=== PATIENT | male | born 1940 | race Caucasian/White ===

== ENCOUNTER 2021-05-17 10:06 | Inpatient (IN) | payer MEDICARE, BC ==
[2021-05-17] VITALS (12 sets, daily range): BP systolic 150–202; BP diastolic 64–90
[~2021-05-17] VITALS: Ht 182.9 cm; Wt 99.0 kg
[2021-05-17] MEDS ORDERED: LIDOCAINE 2%/EPI 1:100,000 20 ML VIAL. ONE (10:54)
[2021-05-17] MEDS ORDERED: ASPIRIN RECTAL 300 MG SUPP. PR PRN (11:15)
--- NOTE | 2021-05-17 11:30 | NUR ---
Etelvina FARFAN notified Nursing Cement Mason Maintenance that Building Construction Foreman needs to be notified about this patient.
[2021-05-17] MEDS ORDERED: MIDAZOLAM HCL/PF 2 MG/2 ML VIAL. IV ONE (12:15)
[2021-05-17] MEDS ORDERED: fentaNYL PF VIAL 100 MCG/2 ML VIAL IV ONE (12:15)
[2021-05-17] MEDS ORDERED: ceFAZolin SODIUM 1 GM in IV NORMAL SALINE 100ML 100 ML IRR ONE (12:15)
[2021-05-17] MEDS ORDERED: LIDOCAINE 2%/EPI 1:100,000 20 ML VIAL. IJ ONE (12:15)
--- NOTE | 2021-05-17 12:29 | PDOC ---
MODERATE SEDATION ASSESSMENT RISKS/ALTERNATIVES Risks/Alternatives Risks and alternatives of this type of sedation and procedure discussed with: RISK/ALTERNATIVES: Patient H & P ON CHART H & P H & P on chart and reviewed for co-morbid conditions and appropriate labs. H&P ON CHART: Yes STATUS PREG STATUS ASSESSED: N/A MEDS/ALLERGIES REVIEWED Meds/Allergies Reviewed Medications and Allergies including time and route of recently administered narcotics and sedatives. MEDS/ALLERGIES REVIEWED: Yes ASA RATING ASA RATING: II AIRWAY ASSESSMENT Airway Assessment Airway patency, oral function limitations, presence of caps, crowns, dentures, partials, and ability to extend neck assessed. AIRWAY ASSESSMENT: Yes MALLAMPATI SCORE MALLAMPATI SCORE: II PRE-SEDATION ASSESSMENT PRE-SEDATION ASSESSMENT: Yes LOLA REYNOSO MD May 17, 2021 12:28
--- NOTE | 2021-05-17 12:50 | PDOC2 ---
NEUROLOGY CONSULT Date of Service DOS: DATE: 05/17/21 TIME: 12:50 Reason for Consult Reason for Consult: Stroke Referring Physician Referring Physician: Ms Leary Source Source: Chart review, Patient History of Present Illness History of Present Illness The patient is an 81-year-old right-handed male who presented to [facility] with onset at 430 yesterday morning of generalized weakness. In the emergency department he commented that he felt weak in the right leg and could not walk. He went back to bed and then woke up again at 530, was still too weak. He came to emergency department where he was found to have hypertension and was having episodes of bradycardia with possible second-degree and complete heart block. He was given atropine and heart rate improved, but then he went into complete heart block and was transferred to [place]. contacted me as the plan was to put in a pacemaker right away, but they wanted to get an MRI of the brain first, which has been done. I looked over the patient in the MRI scanner. Patient has had transient ischemic attacks in the past Past Medical History Cardiovascular: HTN, Hyperlipidemia GI: GERD, Other (Hiatal hernia) Past Surgical History Past Surgical History: Cholecystectomy, Hernia Repair (Umbilical), Total hip replacement (Left), Tonsillectomy Family History Family History: No pertinent hx Social History Social History No tobacco or alcohol, Current Medications Current Medications Current Medications Hydralazine HCl (Apresoline Inj) 10 mg PRN Q4HRS PRN IVP ELEVATED BP, SEE COMMENTS; Start 05/17/21 at 10:45 Lidocaine/ Epinephrine (LIDOCAINE 2%-EPI 1:100,000 multi-dose) 20 ml STK-MED ONCE .ROUTE ; Start 05/17/21 at 10:54; Stop 05/17/21 at 10:54; Status DC Atorvastatin Calcium (Lipitor) 80 mg QHS PO ; Start 05/17/21 at 21:00 Acetaminophen (Tylenol) 650 mg PRN Q6HRS PRN PO MILD PAIN / TEMP > 100.3'F; Start 05/17/21 at 11:15 Aspirin (Ecotrin) 325 mg DAILYWBKFT PO ; Start 05/18/21 at 08:00 Aspirin (Aspirin Rectal Supp) 300 mg PRN DAILY PRN MS IF UNABLE TO TAKE PO; Start 05/17/21 at 11:15 Cefazolin Sodium/ Dextrose 50 ml @ 100 mls/hr 1X ONCE IV Last administered on 05/17/21at 12:30; Start 05/17/21 at 13:00; Stop 05/17/21 at 13:29 Cefazolin Sodium 1 gm/Sodium Chloride 100 ml @ 600 mls/hr 1X ONCE IRR ; Start 05/17/21 at 12:15; Stop 05/17/21 at 12:24; Status DC Midazolam HCl (Versed) 2 mg 1X ONCE IV ; Start 05/17/21 at 12:15; Stop 05/17/21 at 12:29; Status DC Fentanyl Citrate (Fentanyl 2ml Vial) 100 mcg 1X ONCE IV ; Start 05/17/21 at 12:15; Stop 05/17/21 at 12:29; Status DC Lidocaine/ Epinephrine (LIDOCAINE 2%-EPI 1:100,000 multi-dose) 20 ml 1X ONCE IJ Last administered on 05/17/21at 12:44; Start 05/17/21 at 12:15; Stop 05/17/21 at 12:29; Status DC Allergies Allergies: Coded Allergies: No Known Allergies (Verified Allergy, Unknown, 05/17/21) ROS Review of System Negative for fever, chills, weight loss, shortness of breath, chest pain, indigestion, hematochezia, melena, and dysuria. Full 14-point review of systems is negative. Physical Exam Physical Examination General: Well-developed, well-nourished white male in no acute distress HEENT: Normocephalic andatraumatic.Temporal arteriespulsatile and nontender. Neck: Supple without bruit, no meningismus Musculoskeletal: Stability:see neurologic. Gait exam:see neurologic. Tone:see neurologic.Strength:see neurologic. Neurological: Mental Status:intact, orientation, memory, attention span/concentration, language, fund of knowledge normal. Cranial Nerves:Pupils equal and reactive to light, extraocular movements areintact, visual cardozo are full to confrontation. Facial sensation is normal. There is no facial asymmetry. Vestibulo-ocular reflex is intact. Palate elevates and tongue protrudes in midline. All other cranial related problems are negative except as mentioned before.Reflexes:2+ and symmetric with flexor plantar responses. Motor:5-/5 right hemiparesis, normal left strength with normal tone and bulk. Coordination:Finger-nose finger and rzzk-hd-wfkr testing are normal. Rapid alternating movements and fine finger movements are intact. Gait:not tested. Sensory:Normal pinprick, vibration, light touch, proprioception. Vitals VITALS Vital Signs Date Time Temp Pulse Resp B/P (MAP) Pulse Ox O2 Delivery O2 Flow Rate FiO2 05/17/21 10:42 98.7 40 16 184/90 (121) 92 Room Air 98.[address] HEAD INDICATION: Weakness COMPARISON: None Available. Exposure: One or more of the following individualized dose reduction techniques were utilized for this examination: 1. Automated exposure control 2. Adjustment of the mA and/or kV according to patient size 3. Use of iterative reconstruction technique TECHNIQUE: 5 mm contiguous axial images were obtained from the skull base to the vertex in both bone and soft tissue algorithm. FINDINGS: No abnormal attenuation within the brain parenchyma. No evidence of acute intracranial hemorrhage. No extra-axial fluid collections. No mass effect or midline shift. Ventricular size is appropriate. Basal cisterns are patent. No fractures identified.Jacobo-white differentiation is preserved.Globes and orbits are within normal limits. Mild opacification of the right mastoid air cells. IMPRESSION: 1. No acute intracranial findings. 2. Mild opacification of the right mastoid air cells could be secondary to fluid or mastoiditis. Correlate clinically. Assessment/Plan Assessment/Plan Impression: I reviewed the brain MRI and there is a left basal ganglia lacunar stroke also consistent with his examination Complete heart block Recommendations: Okay for pacemaker Await MR angiogram results Aspirin Statin Rehabilitation modalities Thank you for letting me help with the patient's care. JOANN JONES MD May 17, 2021 12:50
[2021-05-17] MEDS ORDERED: IODIXANOL 320 MG/ML 100 ML VIAL. ONE (12:51)
[2021-05-17] MEDS ORDERED: IODIXANOL 320 MG/ML 100 ML VIAL. IART ONE (13:45)
[2021-05-17] MEDS ORDERED: CONTRAST GIVEN. MC PRN (13:45)
[2021-05-17] MEDS ORDERED: hydrALAZINE 20 MG/ML VIAL. ONE (13:53)
[2021-05-17] MEDS: hydrALAZINE 20 MG/ML VIAL. IVP PRN ×2 (13:56→19:57)
--- NOTE | 2021-05-17 14:15 | NUR ---
Pt arrived from [employer] Operator to CV OBS post Pacemaker placement. Family at bedside. Speech notified. Pt to remain NPO until further evaluated. Radiologist called to confirm MRI positive for CVA. Dr Godfrey aware
--- NOTE | 2021-05-17 14:16 | RAD ---
EXAM: Brain MRI without contrast; neck MRA without contrast; head MRA without contrast. HISTORY: Cerebral infarction. Right-sided paresis. TECHNIQUE: Multiplanar, multisequence magnetic resonance imaging of the brain was performed without c ontrast. Magnetic resonance angiography of the head and neck was performed without contrast. Three-di mensional yhci-zn-aponci and maximum intensity projection images were obtained. COMPARISON: Head CT dated 05/16/2021. FINDINGS: Brain MRI: There is restricted diffusion within the posterior left putamen and posterior left externa l capsule and adjacent periventricular white matter due to acute infarction. There is no hemorrhage. There is no mass effect or midline shift. There is no hydrocephalus. There is age-appropriate cerebral volume loss. There are scattered areas of signal change throughout the cerebral white matter, most commonly due to chronic small vessel disease in patients of this age. The orbits are unremarkable. There is an incidental left sylvie bullosa. The paranasal sinuses are cl ear. There is a right greater than left mastoid fluid and fluid within the right middle ear. There ar e normal flow voids within the cerebral vessels. No calvarial lesion is seen. Head MRA: There is mild luminal narrowing involving the right greater than left supraclinoid internal carotid arteries likely due to flow artifact or atherosclerosis with approximately 50-69 percent jimmy nosis on the right and less than 50 being stenosis on the left. No additional stenosis is seen. No an eurysm is seen. Neck MRA: There is no evidence of hemodynamically significant stenosis. The vertebral arteries are co dominant. There are degenerative changes involving the spine, not formally assessed on this exam. IMPRESSION: 1. Acute infarct involving the posterior left putamen and adjacent external capsule and periventricul ar white matter. 2. Bilateral cerebral white matter changes, most commonly due to chronic small vessel disease in a pa tient of this age. 3. Cerebral volume loss. 4. Suspected atherosclerosis involving the supraclinoid internal carotid arteries, resulting in 50-69 percent stenosis on the right and less than 50 percent stenosis on the left. No additional stenosis or occlusion is seen. PQRS Compliance Statement - Stenosis calculations for CT, MR and conventional angiography are based u mariela measurement of the distal ICA diameter in accordance with the NASCET methodology. Stenosis calcu lations for carotid ultrasound studies are derived from validated velocity criteria which are known t o correlate with the NASCET methodology. Findings were discussed with Chelle, the nurse caring for the patient, at 1410 hours on 05/17/2021. FOR INTERNAL CODING PURPOSES RESULT CODE: (C) Electronically signed by: Sandy Gresham MD (05/17/2021 2:14 PM) [id number]
[2021-05-17] MEDS ORDERED: SIMV20TA18 PO (14:39)
[2021-05-17] MEDS ORDERED: ASPI-630 PO (14:39)
[2021-05-17] MEDS ORDERED: LISI20TA18 PO (14:39)
[2021-05-17] MEDS ORDERED: SAW450CA7 PO (14:39)
[2021-05-17] MEDS ORDERED: AMLO-187 PO (14:39)
[2021-05-17] MEDS ORDERED: OMEP40CA7 PO (14:39)
--- NOTE | 2021-05-17 14:40 | NUR ---
Spoke with Arlene at Dr. Godfrey's office regarding MRI results. She stated she will make sure he is aware.
--- NOTE | 2021-05-17 15:42 | NUR ---
Report called to April FARFAN
--- NOTE | 2021-05-17 16:14 | CARD ---
MR#: [id number] Date of Study: 05/17/2021 Ordering Physician: LOLA BELLAMY, Referring Physician: LOLA BELLAMY, Tech: APPROVED REPORT PROCEDURES Sedation Time: 50 minutes Dose: 17.40 Gycm2 Implantation of Medtronic dual-chamber permanent pacemaker Contrast: 15 mL [id number] Fluoro Time: 5.9 Minutes INDICATIONS Complete heart block with severe bradycardia PROCEDURE After explaining the risks, benefits, and alternative options, informed consent was obtained from the patient. The patient was brought to the cardiac catheterization lab and the left chest and shoulder were prepp ed and draped in a sterile manner. IV conscious sedation was used throughout procedure with appropriate monitoring and was performed in the presence of a registered nurse who was an independent trained observer other than the physician p erforming the procedure. During this case, Fluoroscopy and low osmolar contrast were used for imaging. Specimen(s) Removed: No Estimated Blood loss: 15 cc's. 30 cc of 2% lidocaine was infiltrated into the skin and subcutaneous tissues for local anesthesia. I nitial attempts to obtain venous access under fluoroscopic guidance were unsuccessful. A venogram wa s obtained to visualize the left subclavian vein and venous access was obtained successfully using a micropuncture kit. 9 and 7 Danish sheaths were inserted. A Medtronic bipolar active fixation right ventricular lead model 619528, serial number [id number] wa s advanced under fluoroscopy guidance and the tip was positioned in the right ventricular apex. Subs equently, a Medtronic bipolar active fixation right atrial lead model 714563, serial number [id number] was position in the right atrial appendage under fluoroscopy guidance. The leads were secured in place and were attached to a Medtronic dual-chamber permanent pacemaker generator model W3 DR 01, ser ial number [id number]. This was placed in the pocket that was subsequently closed in 3 layers. Hem ostasis was secured. The right ventricular lead showed a sensing amplitude of 8.7 mV, impedance of 901 ohms and a threshol d of 0.5 V. The right atrial lead showed a sensing amplitude of 2.3 mV, impedance of 777 ohms and a threshold of 0.8 V. Patient tolerated the procedure well. There were no immediate complications. CONCLUSION Successful implantation of Medtronic dual-chamber permanent pacemaker for complete heart block with s evere bradycardia. Signed by : Lola Bellamy, Electronically Approved : 05/17/2021 16:13:42
--- NOTE | 2021-05-17 16:29 | RAD ---
EXAM: Chest, single view. HISTORY: Pacemaker placement. COMPARISON: None. FINDINGS: A frontal view of the chest is obtained. There is no infiltrate, pleural effusion or pneumo thorax. There is mild biapical pleural parenchymal scarring. There is a cardiac pacemaker with leads overlying expected position. IMPRESSION: No acute pulmonary finding. Electronically signed by: Sandy Gresham MD (05/17/2021 4:26 PM) [id number]
--- NOTE | 2021-05-17 16:53 | NUR ---
Patient transported to room 671, no problems noted and food was waiting for patient. Son carried patient's pacemaker monitor kit up to his room.
--- NOTE | 2021-05-17 19:45 | NUR ---
Pt daughter at bedside, poc explained assessment completed vs obtained pt bp elevated hydralazine given pt denied pain at this time will resume care and continue to monitor pt.
[2021-05-17] MEDS: ACETAMINOPHEN 325 MG TABLET. PO PRN (21:58)
[2021-05-17] MEDS: ATORVASTATIN CALCIUM 40 MG TABLET. PO SCH (21:58)
[2021-05-17] MEDS ORDERED: LISINOPRIL 20 MG TABLET PO ONE (22:30)
[2021-05-18] VITALS (10 sets, daily range): BP systolic 150–199; BP diastolic 53–86
[2021-05-18] MEDS: hydrALAZINE 20 MG/ML VIAL. IVP PRN ×4 (01:45→21:13)
[2021-05-18] MEDS: ASPIRIN ENTERIC COATED 325 MG TABLET.DR. PO SCH (07:45)
[2021-05-18] MEDS ORDERED: LISINOPRIL 20 MG TABLET PO SCH (09:00)
--- NOTE | 2021-05-18 12:20 | PDOC ---
FANNIE SALAS LUMP ROOM SUPERVISOR 05/18/21 1220: CARDIO Progress Notes Date and Time Date of Service 05/18/2021 Time of Evaluation 1145 Subjective Subjective: No Chest Pain, No shortness of breath, No Palpitations, Other (just threw up her lunch) Vitals Vitals Vital Signs Date Time Temp Pulse Resp B/P (MAP) Pulse Ox O2 Delivery O2 Flow Rate FiO2 05/18/21 11:00 97.7 67 18 161/68 (99) 95 Room Air 97.7 05/17/21 19:45 2.0 Weight Weight [ ] Input and Output Intake and Output Intake and Output 05/18/21 07:00 Intake Total 880 ml Output Total 1025 ml Balance -145 ml Intake Oral 880 ml Output Urine Total 1025 ml # Bowel Movements 1 Laboratory Labs Laboratory Tests Test 05/17/21 20:57 05/18/21 08:01 05/18/21 11:37 Glucose (Fingerstick) 137 mg/dL (70-99) 117 mg/dL (70-99) 146 mg/dL (70-99) Physical Exam HEENT: Neck Supple W Full Motion Chest: Symmetric LUNGS: Other (diminished bases) Heart: RRR (AV pacing) Abdomen: Soft N/T Extremities: No Edema, No Calf Tenderness Neurology: alert, oriented, follow commands Other Exams left chest incision intact with steristrips, no redness, swelling, drain. Neurovascular status to LUE intact, sling in place Assessment Assessment 1. Acute stroke to posterior left putamen and adjacent external capsule and periventricular white matter with right sided weakness 2. Symptomatic bradycardia/SSS 3. Accelerated HTN: labile 4. HLP 5. Subclinical hypothyroidism 6. S/P PPM: medtronic, repeat interrogation revealed nml function. Tolerated procedure well 7. Hyperglycemia Recommendations 1. ASA, statin 2. suspected culprit is small vessel disease. Would interrogate device on next appt and will note if any contributing AFIB 3. TTE, CXR, A1C 4. SNU eval 5. Adjust BP meds per trend Continue lisinopril and norvasc. Justicifation of Admission Dx: Justifications for Admission: Justification of Admission Dx: Yes LOLA REYNOSO MD 05/18/21 9631: CARDIO Progress Notes Assessment Assessment Patient seen and examined. Agree with HUC OB's assessment and plan CHB s/p PPM implantation with device check showing normal function and CXR without any pneumothorax Neurology team following for acute CVA Increase lisinopril dose for better BP control FANNIE SALAS APRN May 18, 2021 12:20 LOLA REYNOSO MD May 18, 2021 21:51
--- NOTE | 2021-05-18 12:41 | PDOC ---
PROGRESS NOTES Date of Service DATE: 05/18/21 TIME: 12:38 Assessment Lacunar stroke, posterior left putamen and adjacent external capsule and periventricular white matter. Atherosclerosis involving the supraclinoid internal carotid arteries, resulting in 50-69 percent stenosis on the right and less than 50 percent stenosis on the left. No additional stenosis or occlusion Complete heart block, status-post pacemaker on 05/17 Plan Aspirin Statin Rehabilitation modalities, needs inpatient Discussed with son Subjective Feels better Objective Vital Signs Date Time Temp Pulse Resp B/P (MAP) Pulse Ox O2 Delivery O2 Flow Rate FiO2 05/18/21 11:00 97.7 67 18 161/68 (99) 95 Room Air 97.7 05/17/21 19:45 2.0 Intake and Output 05/18/21 07:00 Intake Total 880 ml Output Total 1025 ml Balance -145 ml Intake Oral 880 ml Output Urine Total 1025 ml # Bowel Movements 1 PHYSICAL EXAM Alert. Oriented to time, place and person. PERRL. EOMI. CN: no focal findings. Muscle tone: normal. Muscle strength: 5-/5 right arm, 3/5 right leg DTR: 2+ Plantar reflex: Flexor Gait: not examined in bed. Sensory exam: no abnormal findings. No cerebellar signs elicited. Review of Relevant I have reviewed the following items saúl (where applicable) has been applied. Labs Laboratory Tests Test 05/17/21 20:57 05/18/21 08:01 05/18/21 11:37 Glucose (Fingerstick) 137 mg/dL (70-99) 117 mg/dL (70-99) 146 mg/dL (70-99) Laboratory Tests Test 05/17/21 20:57 05/18/21 08:01 05/18/21 11:37 Glucose (Fingerstick) 137 mg/dL (70-99) 117 mg/dL (70-99) 146 mg/dL (70-99) Medications Current Medications Hydralazine HCl (Apresoline Inj) 10 mg PRN Q4HRS PRN IVP ELEVATED BP, SEE COMMENTS Last administered on 05/18/21at 07:47; Start 05/17/21 at 10:45 Lidocaine/ Epinephrine (LIDOCAINE 2%-EPI 1:100,000 multi-dose) 20 ml STK-MED ONCE .ROUTE ; Start 05/17/21 at 10:54; Stop 05/17/21 at 10:54; Status DC Atorvastatin Calcium (Lipitor) 80 mg QHS PO Last administered on 05/17/21at 21:58; Start 05/17/21 at 21:00 Acetaminophen (Tylenol) 650 mg PRN Q6HRS PRN PO MILD PAIN / TEMP > 100.3'F Last administered on 05/17/21at 21:58; Start 05/17/21 at 11:15 Aspirin (Ecotrin) 325 mg DAILYWBKFT PO Last administered on 05/18/21at 07:45; Start 05/18/21 at 08:00 Aspirin (Aspirin Rectal Supp) 300 mg PRN DAILY PRN HI IF UNABLE TO TAKE PO; Start 05/17/21 at 11:15 Cefazolin Sodium/ Dextrose 50 ml @ 100 mls/hr 1X ONCE IV Last administered on 05/17/21at 12:30; Start 05/17/21 at 13:00; Stop 05/17/21 at 13:29; Status DC Cefazolin Sodium 1 gm/Sodium Chloride 100 ml @ 600 mls/hr 1X ONCE IRR Last administered on 05/17/21at 13:15; Start 05/17/21 at 12:15; Stop 05/17/21 at 12:24; Status DC Midazolam HCl (Versed) 2 mg 1X ONCE IV Last administered on 05/17/21at 12:44; Start 05/17/21 at 12:15; Stop 05/17/21 at 12:29; Status DC Fentanyl Citrate (Fentanyl 2ml Vial) 100 mcg 1X ONCE IV Last administered on 05/17/21at 12:44; Start 05/17/21 at 12:15; Stop 05/17/21 at 12:29; Status DC Lidocaine/ Epinephrine (LIDOCAINE 2%-EPI 1:100,000 multi-dose) 20 ml 1X ONCE IJ Last administered on 05/17/21at 12:44; Start 05/17/21 at 12:15; Stop 05/17/21 at 12:29; Status DC Iodixanol (Visipaque 320) 100 ml STK-MED ONCE .ROUTE ; Start 05/17/21 at 12:51; Stop 05/17/21 at 12:52; Status DC Iodixanol (Visipaque 320) 100 ml 1X ONCE IART Last administered on 05/17/21at 13:39; Start 05/17/21 at 13:45; Stop 05/17/21 at 13:46; Status DC Info (CONTRAST GIVEN -- Rx MONITORING) 1 each PRN DAILY PRN MC SEE COMMENTS; Start 05/17/21 at 13:45; Stop 05/19/21 at 13:44 Hydralazine HCl (Apresoline Inj) 20 mg STK-MED ONCE .ROUTE ; Start 05/17/21 at 13:53; Stop 05/17/21 at 13:54; Status DC Cefazolin Sodium/ Dextrose 50 ml @ 100 mls/hr 1X ONCE IV Last administered on 05/17/21at 18:25; Start 05/17/21 at 18:30; Stop 05/17/21 at 18:59; Status DC Amlodipine Besylate (Norvasc) 10 mg DAILY PO Last administered on 05/18/21at 07:46; Start 05/18/21 at 09:00 Lisinopril (Prinivil) 20 mg DAILY PO Last administered on 05/18/21at 07:45; Start 05/18/21 at 09:00 Amlodipine Besylate (Norvasc) 10 mg 1X ONCE PO Last administered on 05/17/21at 22:39; Start 05/17/21 at 22:30; Stop 05/17/21 at 22:31; Status DC Lisinopril (Prinivil) 20 mg 1X ONCE PO Last administered on 05/17/21at 22:40; Start 05/17/21 at 22:30; Stop 05/17/21 at 22:31; Status DC Active Scripts Active Reported Aspirin 81 Mg Tab.chew 81 Mg PO DAILY Saw [place] (Saw [place] Fruit) 450 Mg Capsule 450 Mg PO DAILY Simvastatin 20 Mg Tablet 20 Mg PO HS Omeprazole 40 Mg Capsule.dr 40 Mg PO DAILY Lisinopril 20 Mg Tablet 20 Mg PO DAILY Amlodipine Besylate 10 Mg Tablet 10 Mg PO DAILY Vitals/I & O Vital Sign - Last 24 Hours 05/17/21 05/17/21 05/17/21 05/17/21 12:44 13:33 13:55 13:56 Pulse 75 67 72 Resp 17 16 17 B/P (MAP) 202/81 Pulse Ox 99 95 O2 Delivery Nasal Cannula Nasal Cannula Nasal Cannula O2 Flow Rate 2.0 2.0 9/105/17/21 05/17/21 05/17/21 14:10 14:25 14:40 15:10 Pulse 72 61 61 60 Resp 15 Pulse Ox 96 95 95 92 O2 Delivery Room Air Room Air Room Air Room Air 05/17/21 05/17/21 05/17/21 05/17/21 15:25 17:00 17:08 19:19 Temp 98.0 97.8 98.0 97.8 Pulse 60 66 69 Resp 13 18 16 B/P (MAP) 167/86 (113) 191/65 (107) Pulse Ox 96 96 95 O2 Delivery Room Air Room Air Room Air Room Air 05/17/21 05/17/21 05/17/21 05/17/21 19:45 19:57 22:39 22:40 Pulse 69 69 69 B/P (MAP) 191/96 191/96 191/96 O2 Delivery Room Air O2 Flow Rate 2.0 05/17/21 05/18/21 05/18/21 05/18/21 23:04 01:45 01:45 02:46 Temp 98.7 97.9 98.7 97.9 Pulse 65 67 68 72 Resp 18 16 B/P (MAP) 185/78 (113) 199/82 199/82 (121) 180/53 (95) Pulse Ox 94 95 O2 Delivery Room Air Room Air 05/18/21 05/18/21 05/18/21 05/18/21 03:52 07:00 07:45 07:46 Temp 98.0 98.0 Pulse 68 60 70 70 Resp 18 B/P (MAP) 181/62 (101) 198/86 (123) 198/86 198/86 Pulse Ox 93 O2 Delivery Room Air 05/18/21 05/18/21 05/18/21 05/18/21 07:47 08:00 09:18 11:00 Temp 97.7 97.7 Pulse 70 67 Resp 18 B/P (MAP) 198/86 159/73 (101) 161/68 (99) Pulse Ox 95 O2 Delivery Room Air Room Air Intake and Output 05/17/21 05/17/21 05/18/21 15:00 23:00 07:00 Intake Total 480 ml 400 ml Output Total 200 ml 825 ml Balance -200 ml 480 ml -425 ml Images Brain MRI without contrast; neck MRA without contrast; head MRA without contrast. HISTORY: Cerebral infarction. Right-sided paresis. TECHNIQUE: Multiplanar, multisequence magnetic resonance imaging of the brain was performed without contrast. Magnetic resonance angiography of the head and neck was performed without contrast. Three-dimensional [id number] and maximum intensity projection images were obtained. COMPARISON: Head CT dated 05/16/2021. FINDINGS: Brain MRI: There is restricted diffusion within the posterior left putamen and posterior left external capsule and adjacent periventricular white matter due to acute infarction. There is no hemorrhage. There is no mass effect or midline shift. There is no hydrocephalus. There is age-appropriate cerebral volume loss. There are scattered areas of signal change throughout the cerebral white matter, most commonly due to chronic small vessel disease in patients of this age. The orbits are unremarkable. There is an incidental left sylvie bullosa. The paranasal sinuses are clear. There is a right greater than left mastoid fluid and fluid within the right middle ear. There are normal flow voids within the cerebral vessels. No calvarial lesion is seen. Head MRA: There is mild luminal narrowing involving the right greater than left supraclinoid internal carotid arteries likely due to flow artifact or atherosclerosis with approximately 50-69 percent stenosis on the right and less than 50 being stenosis on the left. No additional stenosis is seen. No aneurysm is seen. Neck MRA: There is no evidence of hemodynamically significant stenosis. The vertebral arteries are codominant. There are degenerative changes involving the spine, not formally assessed on this exam. IMPRESSION: 1. Acute infarct involving the posterior left putamen and adjacent external capsule and periventricular white matter. 2. Bilateral cerebral white matter changes, most commonly due to chronic small vessel disease in a patient of this age. 3. Cerebral volume loss. 4. Suspected atherosclerosis involving the supraclinoid internal carotid arteries, resulting in 50-69 percent stenosis on the right and less than 50 percent stenosis on the left. No additional stenosis or occlusion is seen. Justicifation of Admission Dx: Justifications for Admission: Justification of Admission Dx: Yes JOANN JNOES MD May 18, 2021 12:41
--- NOTE | 2021-05-18 15:54 | RAD ---
Single view of the chest. 05/18/2021 12:59 PM Indication: Reason: 1 day post PM implantation - pt cannot stand, changed to 1 view x [place] Comparison: Chest radiograph, yesterday Findings: Dual-lead pacemaking device from a left subclavian approach noted. No pneumothorax. No foca l infiltrate. Heart is enlarged. No acute osseous changes are identified. IMPRESSION: Dual-lead pacemaking device from a left subclavian approach. No pneumothorax is identifie d. Electronically signed by: Adarsh Hannon MD (05/18/2021 3:52 PM) [id number]
--- NOTE | 2021-05-18 16:32 | NUR ---
SS following for discharge planning. SS reviewed pt chart and discussed with pt RN. Pt is from home and is currently on room air. Pt had pacemaker placement. PT/OT recommended acute rehabilitation. SS met with pt and pt's daughter in room to discuss discharge planning and acute rehabilitation. Pt and pt's family requesting to go to [facility], ; fax [phone]. SS phoned and faxed referral as requested. SS will continue to follow for discharge planning.
--- NOTE | 2021-05-18 19:40 | NUR ---
Pt in bed assessment completed vss poc explained pt denied pain pt concerned about his blood pressure being elevated. Will resume care and continue to monitor pt.Call light in reach bed alarm set.
[2021-05-18] MEDS: ATORVASTATIN CALCIUM 40 MG TABLET. PO SCH (21:13)
[2021-05-19] VITALS (8 sets, daily range): BP systolic 155–200; BP diastolic 61–75
[2021-05-19] MEDS: hydrALAZINE 20 MG/ML VIAL. IVP PRN ×2 (03:31→21:03)
[2021-05-19 06:58] LABS: CHOLESTEROL/HDL RATIO 3.5
--- NOTE | 2021-05-19 08:37 | PDOC ---
PROGRESS NOTES Date of Service DATE: 05/19/21 TIME: 08:36 Assessment Lacunar stroke, posterior left putamen and adjacent external capsule and periventricular white matter. Right leg weaker today Atherosclerosis involving the supraclinoid internal carotid arteries, resulting in 50-69 percent stenosis on the right and less than 50 percent stenosis on the left. No additional stenosis or occlusion Complete heart block, status-post pacemaker on 05/17 Plan Aspirin Statin Rehabilitation modalities, needs inpatient Tighten blood pressure control, reiterated that permissive hypertension is standard of care immediately after the stroke Discussed with son Subjective No pain, denies back pain Objective Vital Signs Date Time Temp Pulse Resp B/P (MAP) Pulse Ox O2 Delivery O2 Flow Rate FiO2 05/19/21 07:31 180/65 (103) 05/19/21 07:18 98.7 94 18 97 Room Air 98.7 Intake and Output 05/19/21 07:00 Intake Total 818 ml Output Total 1425 ml Balance -607 ml Intake Oral 818 ml Output Urine Total 1225 ml Emesis 200 ml PHYSICAL EXAM Alert. Oriented to time, place and person. PERRL. EOMI. CN: no focal findings. Muscle tone: normal. Muscle strength: 5-/5 right arm, 1/5 right leg DTR: 2+ Plantar reflex: Flexor Gait: not examined in bed. Sensory exam: no abnormal findings. No cerebellar signs elicited. Review of Relevant I have reviewed the following items saúl (where applicable) has been applied. Labs Laboratory Tests Test 05/17/21 20:57 05/18/21 08:01 05/18/21 11:37 05/18/21 16:59 Glucose (Fingerstick) 137 mg/dL (70-99) 117 mg/dL (70-99) 146 mg/dL (70-99) 117 mg/dL (70-99) Test 05/18/21 20:56 05/19/21 04:00 05/19/21 07:21 Glucose (Fingerstick) 118 mg/dL (70-99) 116 mg/dL (70-99) Triglycerides Level 74 mg/dL (0-150) Cholesterol Level 149 mg/dL (0-200) LDL Cholesterol, Calculated 92 mg/dL (0-100) VLDL Cholesterol, Calculated 15 mg/dL (0-40) Non-HDL Cholesterol Calculated 107 mg/dL (0-129) HDL Cholesterol 42 mg/dL (40-60) Cholesterol/HDL Ratio 3.5 Laboratory Tests Test 05/18/21 11:37 05/18/21 16:59 05/18/21 20:56 05/19/21 04:00 Glucose (Fingerstick) 146 mg/dL (70-99) 117 mg/dL (70-99) 118 mg/dL (70-99) Triglycerides Level 74 mg/dL (0-150) Cholesterol Level 149 mg/dL (0-200) LDL Cholesterol, Calculated 92 mg/dL (0-100) VLDL Cholesterol, Calculated 15 mg/dL (0-40) Non-HDL Cholesterol Calculated 107 mg/dL (0-129) HDL Cholesterol 42 mg/dL (40-60) Cholesterol/HDL Ratio 3.5 Test 05/19/21 07:21 Glucose (Fingerstick) 116 mg/dL (70-99) Medications Current Medications Hydralazine HCl (Apresoline Inj) 10 mg PRN Q4HRS PRN IVP ELEVATED BP, SEE COMMENTS Last administered on 05/19/21at 03:31; Start 05/17/21 at 10:45 Lidocaine/ Epinephrine (LIDOCAINE 2%-EPI 1:100,000 multi-dose) 20 ml STK-MED ONCE .ROUTE ; Start 05/17/21 at 10:54; Stop 05/17/21 at 10:54; Status DC Atorvastatin Calcium (Lipitor) 80 mg QHS PO Last administered on 05/18/21at 21:13; Start 05/17/21 at 21:00 Acetaminophen (Tylenol) 650 mg PRN Q6HRS PRN PO MILD PAIN / TEMP > 100.3'F Last administered on 05/17/21at 21:58; Start 05/17/21 at 11:15 Aspirin (Ecotrin) 325 mg DAILYWBKFT PO Last administered on 05/18/21at 07:45; Start 05/18/21 at 08:00 Aspirin (Aspirin Rectal Supp) 300 mg PRN DAILY PRN NC IF UNABLE TO TAKE PO; Start 05/17/21 at 11:15 Cefazolin Sodium/ Dextrose 50 ml @ 100 mls/hr 1X ONCE IV Last administered on 05/17/21at 12:30; Start 05/17/21 at 13:00; Stop 05/17/21 at 13:29; Status DC Cefazolin Sodium 1 gm/Sodium Chloride 100 ml @ 600 mls/hr 1X ONCE IRR Last administered on 05/17/21at 13:15; Start 05/17/21 at 12:15; Stop 05/17/21 at 12:24; Status DC Midazolam HCl (Versed) 2 mg 1X ONCE IV Last administered on 05/17/21at 12:44; Start 05/17/21 at 12:15; Stop 05/17/21 at 12:29; Status DC Fentanyl Citrate (Fentanyl 2ml Vial) 100 mcg 1X ONCE IV Last administered on 05/17/21at 12:44; Start 05/17/21 at 12:15; Stop 05/17/21 at 12:29; Status DC Lidocaine/ Epinephrine (LIDOCAINE 2%-EPI 1:100,000 multi-dose) 20 ml 1X ONCE IJ Last administered on 05/17/21at 12:44; Start 05/17/21 at 12:15; Stop 05/17/21 at 12:29; Status DC Iodixanol (Visipaque 320) 100 ml STK-MED ONCE .ROUTE ; Start 05/17/21 at 12:51; Stop 05/17/21 at 12:52; Status DC Iodixanol (Visipaque 320) 100 ml 1X ONCE IART Last administered on 05/17/21at 13:39; Start 05/17/21 at 13:45; Stop 05/17/21 at 13:46; Status DC Info (CONTRAST GIVEN -- Rx MONITORING) 1 each PRN DAILY PRN MC SEE COMMENTS; Start 05/17/21 at 13:45; Stop 05/19/21 at 13:44 Hydralazine HCl (Apresoline Inj) 20 mg STK-MED ONCE .ROUTE ; Start 05/17/21 at 13:53; Stop 05/17/21 at 13:54; Status DC Cefazolin Sodium/ Dextrose 50 ml @ 100 mls/hr 1X ONCE IV Last administered on 05/17/21at 18:25; Start 05/17/21 at 18:30; Stop 05/17/21 at 18:59; Status DC Amlodipine Besylate (Norvasc) 10 mg DAILY PO Last administered on 05/18/21at 07:46; Start 05/18/21 at 09:00 Lisinopril (Prinivil) 20 mg DAILY PO Last administered on 05/18/21at 07:45; Start 05/18/21 at 09:00; Stop 05/18/21 at 21:52; Status DC Amlodipine Besylate (Norvasc) 10 mg 1X ONCE PO Last administered on 05/17/21at 22:39; Start 05/17/21 at 22:30; Stop 05/17/21 at 22:31; Status DC Lisinopril (Prinivil) 20 mg 1X ONCE PO Last administered on 05/17/21at 22:40; Start 05/17/21 at 22:30; Stop 05/17/21 at 22:31; Status DC Lisinopril (Prinivil) 40 mg DAILY PO ; Start 05/19/21 at 09:00 Active Scripts Active Reported Aspirin 81 Mg Tab.chew 81 Mg PO DAILY Saw [place] (Saw [place] Fruit) 450 Mg Capsule 450 Mg PO DAILY Simvastatin 20 Mg Tablet 20 Mg PO HS Omeprazole 40 Mg Capsule.dr 40 Mg PO DAILY Lisinopril 20 Mg Tablet 20 Mg PO DAILY Amlodipine Besylate 10 Mg Tablet 10 Mg PO DAILY Vitals/I & O Vital Sign - Last 24 Hours 05/18/21 05/18/21 05/18/21 05/18/21 09:18 11:00 15:00 15:12 Temp 97.7 97.7 97.7 97.7 Pulse 67 69 68 Resp 18 16 B/P (MAP) 159/73 (101) 161/68 (99) 183/80 (114) 204/65 Pulse Ox 95 94 O2 Delivery Room Air Room Air 05/18/21 05/18/21 05/18/21 05/18/21 16:32 18:59 19:40 21:13 Temp 98.6 98.6 Pulse 73 72 Resp 18 B/P (MAP) 165/59 (94) 185/73 (110) 185/73 Pulse Ox 94 O2 Delivery Room Air Room Air 05/18/21 05/19/21 05/19/21 05/19/21 22:31 03:14 03:31 04:47 Temp 98.7 98.8 98.7 98.8 Pulse 96 101 94 78 Resp 18 18 B/P (MAP) 150/62 (91) 185/68 (107) 185/68 165/61 (95) Pulse Ox 93 96 O2 Delivery Room Air Room Air 05/19/21 05/19/21 07:18 07:31 Temp 98.7 98.7 Pulse 94 Resp 18 B/P (MAP) 200/72 (114) 180/65 (103) Pulse Ox 97 O2 Delivery Room Air Intake and Output 05/18/21 05/18/21 05/19/21 15:00 23:00 07:00 Intake Total 300 ml 318 ml 200 ml Output Total 550 ml 525 ml 350 ml Balance -250 ml -207 ml -150 ml Justicifation of Admission Dx: Justifications for Admission: Justification of Admission Dx: Yes JOANN JONES MD May 19, 2021 08:37
[2021-05-19] MEDS: LISINOPRIL 20 MG TABLET PO SCH (08:59)
[2021-05-19] MEDS: ASPIRIN ENTERIC COATED 325 MG TABLET.DR. PO SCH (08:59)
--- NOTE | 2021-05-19 09:50 | CARD ---
MR#: [id number] Date of Study: 05/18/2021 Ordering Physician: BRAYAN VELASCO, Referring Physician: BRAYAN VELASCO, Tech: Lizette Bhavanadylan, [facility] APPROVED REPORT EXAM: Two-dimensional and M-mode echocardiogram with Doppler and color Doppler. Other Information Quality : FairHR: 68bpm Technically limited study due to INDICATION CVA/TIA RISK FACTORS Hypertension Hyperlipidemia 2D DIMENSIONS RVDd2.9 (2.9-3.5cm)Left Atrium(2D)4.4 (1.6-4.0cm) IVSd1.0 (0.7-1.1cm)Aortic Root(2D)3.6 (2.0-3.7cm) LVDd5.5 (3.9-5.9cm)LVOT Diameter2.1 (1.8-2.4cm) PWd1.3 (0.7-1.1cm)LVDs3.3 (2.5-4.0cm) FS (%) 38.8 %SV99.4 ml LVEF(%)68.6 (>50%) Aortic Valve AoV Peak Fernando.152.0cm/sAoV VTI28.4cm AO Peak GR.9.2mmHgLVOT VTI 23.22cm AO Mean GR.5mmHg Mitral Valve MV E Wqrrpkxd82.0cm/sMV E Peak Gr.5mmHg MV DECEL [id number] A Sncnmpys958.5cm/s MV E Mean Gr.2mmHgE/A Ratio0.7 TDI Lateral E' P. V7.47cm/sMedial E' P. V5.47cm/s E/Lateral E'9.1E/Medial E'12.4 Tricuspid Valve TR P. [id number] [id number] TR Peak Gr.[id number] LEFT VENTRICLE The left ventricle is normal size. There is mild concentric left ventricular hypertrophy. The left ve ntricular systolic function is normal. The ejection fraction is 55%. There is normal LV segmental wal l motion. Transmitral Doppler flow pattern is Grade I-abnormal relaxation pattern. RIGHT VENTRICLE The right ventricle is mildly dilated. There is normal right ventricular wall thickness. The right ve ntricular systolic function is normal. There is a pacemaker lead in the right ventricle. ATRIA The left atrium is mildly dilated. The right atrium is not well visualized. There is a pacemaker lead seen in the right atrium. The interatrial septum is intact with no evidence for an atrial septal def ect or patent foramen ovale as noted on 2-D or Doppler imaging. AORTIC VALVE The aortic valve is normal in structure and function. Doppler and Color Flow revealed no significant aortic regurgitation. There is no significant aortic valvular stenosis. Calculated aortic valve area is 3.48 cm2 with maximum pressure gradient of 13 mmHg and mean pressure gradient of 7 mmHg. MITRAL VALVE The mitral valve is normal in structure and function. There is no evidence of mitral valve prolapse. There is no mitral valve stenosis. Doppler and Color-flow revealed trace mitral regurgitation. TRICUSPID VALVE The tricuspid valve is normal in structure and function. Doppler and Color Flow revealed trace tricus pid regurgitation with an estimated PAP of 32 mmHg. There is no tricuspid valve stenosis. PULMONIC VALVE The pulmonic valve is not well visualized. Doppler and Color Flow revealed trace pulmonic valvular re gurgitation. GREAT VESSELS The aortic root is normal in size. The IVC is dilated. PERICARDIAL EFFUSION There is no evidence of significant pericardial effusion. Critical Notification Critical Value: No <Conclusion> The left ventricular systolic function is normal. The ejection fraction is 55%. There is normal LV segmental wall motion. Transmitral Doppler flow pattern is Grade I-abnormal relaxation pattern. Pacer lead noted RA/RV. Trace mitral regurgitation. Trace tricuspid regurgitation with an estimated PAP of 32 mmHg. There is no evidence of significant pericardial effusion. Signed by : Huy Bellamy, Electronically Approved : 05/19/2021 09:50:25
--- NOTE | 2021-05-19 12:57 | NUR ---
SS following up with discharge planning. SS reviewed pt chart and discussed with pt RN. Pt is currently on room air. COVID19 negative. PT/OT recommended acute rehabilitation. Pt accepted at [facility], ; fax [phone]. SS will continue to follow for discharge planning.
--- NOTE | 2021-05-19 13:08 | PDOC ---
FANNIE SALAS CONVERSION DEVELOPER 05/19/21 1308: CARDIO Progress Notes Date and Time Date of Service 05/19/2021 Time of Evaluation 1245 Subjective Subjective: No Chest Pain, No shortness of breath, No Palpitations Vitals Vitals Vital Signs Date Time Temp Pulse Resp B/P (MAP) Pulse Ox O2 Delivery O2 Flow Rate FiO2 05/19/21 10:09 98.5 94 18 169/73 (105) 97 Room Air 98.5 Weight Weight [ ] Input and Output Intake and Output Intake and Output 05/19/21 07:00 Intake Total 818 ml Output Total 1425 ml Balance -607 ml Intake Oral 818 ml Output Urine Total 1225 ml Emesis 200 ml Laboratory Labs Laboratory Tests Test 05/18/21 16:59 05/18/21 20:56 05/19/21 04:00 05/19/21 07:21 Glucose (Fingerstick) 117 mg/dL (70-99) 118 mg/dL (70-99) 116 mg/dL (70-99) Triglycerides Level 74 mg/dL (0-150) Cholesterol Level 149 mg/dL (0-200) LDL Cholesterol, Calculated 92 mg/dL (0-100) VLDL Cholesterol, Calculated 15 mg/dL (0-40) Non-HDL Cholesterol Calculated 107 mg/dL (0-129) HDL Cholesterol 42 mg/dL (40-60) Cholesterol/HDL Ratio 3.5 Test 05/19/21 11:07 Glucose (Fingerstick) 132 mg/dL (70-99) Physical Exam HEENT: Neck Supple W Full Motion Chest: Symmetric LUNGS: Other (diminished bases) Heart: RRR (AV pacing) Abdomen: Soft N/T Extremities: No Edema, No Calf Tenderness Neurology: alert, oriented, follow commands Assessment Assessment 1. Acute stroke to posterior left putamen and adjacent external capsule and periventricular white matter with right sided weakness 2. Symptomatic bradycardia/SSS; EF and WM nml 3. Accelerated HTN: labile 4. HLP 5. Subclinical hypothyroidism 6. S/P PPM: medtronic, repeat interrogation revealed nml function. Tolerated procedure well. AV pacing 7. Hyperglycemia: A1C pending Recommendations 1. ASA, statin 2. suspected culprit is small vessel disease. Would interrogate device on next appt and will note if any contributing AFIB 3. SNU eval 4. Transfer primary care to hospitalist 5. Adjust BP meds per trend Continue lisinopril and norvasc. Add HCTZ, adjust per BP trend Justicifation of Admission Dx: Justifications for Admission: Justification of Admission Dx: Yes LOLA REYNOSO MD 05/19/212057: CARDIO Progress Notes Assessment Assessment Patient seen and examined. Agree with ROLLER OPERATOR's assessment and plan. s/p PPM implantation for CHB, doing well PPM interrogation normal and CXR without any pneumothorax Plan for rehab for CVA and f/u with our office as scheduled FANNIE SALAS APRN May 19, 2021 13:08 LOLA REYNOSO MD May 19, 2021 20:58
[2021-05-19] MEDS ORDERED: hydroCHLOROthiazide 12.5 MG CAPSULE PO ONE (13:15)
[2021-05-19 13:19] LABS: CALCIUM 8.9 mg/dL (8.5-10.1); CREATININE 1.5 mg/dL (0.7-1.3); POTASSIUM 3.8 mmol/L (3.5-5.1)
[2021-05-19] MEDS: ATORVASTATIN CALCIUM 40 MG TABLET. PO SCH (20:27)
[2021-05-20] VITALS (7 sets, daily range): BP systolic 141–208; BP diastolic 65–91
[2021-05-20] MEDS: hydrALAZINE 20 MG/ML VIAL. IVP PRN ×2 (01:39→22:34)
[2021-05-20 02:12] LABS: HEMOGLOBIN A1C 6.5 % (4.8-5.6)
[2021-05-20] MEDS: ACETAMINOPHEN 325 MG TABLET. PO PRN ×2 (03:14→22:33)
[2021-05-20] MEDS: ASPIRIN ENTERIC COATED 325 MG TABLET.DR. PO SCH (08:44)
[2021-05-20] MEDS: LISINOPRIL 20 MG TABLET PO SCH (08:44)
--- NOTE | 2021-05-20 12:20 | PDOC ---
PROGRESS NOTES Date of Service: DATE: 05/20/21 TIME: 12:17 Subjective Subjective Continues to complain of right sided weakness. Denied any chest pain or shortness of breath. Objective Objective Vital Signs Date Time Temp Pulse Resp B/P (MAP) Pulse Ox O2 Delivery O2 Flow Rate FiO2 05/20/21 11:22 98.0 65 18 141/91 (108) 96 Room Air 98.0 Intake and Output 05/20/21 07:00 Intake Total 300 ml Output Total 1325 ml Balance -1025 ml Intake Oral 300 ml Output Urine Total 1325 ml Physical Exam Abdomen: Normal bowel sounds, No tenderness Heart: Regular rate, No murmurs Extremities: No edema General: Alert, Oriented X3 HEENT: Atraumatic Lungs: Clear to auscultation Psych/Mental Status: Mood NL Assessment Assessment 1. 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 Neurology following. 2. Symptomatic bradycardia/SSS; EF and WM nml, s/p permanent pacemaker implantation. Telemetry showed paced rhythm. 3. Accelerated HTN: labile but better controlled 4. HLP: Continue statins 5. Subclinical hypothyroidism 6. S/P PPM: medtronic, repeat interrogation revealed nml function. Tolerated procedure well. AV pacing 7. Hyperglycemia: A1C pending Possible transfer to [facility] rehab today. Comment Review of Relevant I have reviewed the following items saúl (where applicable) has been applied. Labs Laboratory Tests Test 05/19/21 16:08 05/19/21 20:41 05/20/21 07:43 05/20/21 11:54 Glucose (Fingerstick) 117 mg/dL (70-99) 117 mg/dL (70-99) 106 mg/dL (70-99) 126 mg/dL (70-99) Medications Current Medications Hydrochlorothiazide (Microzide) 12.5 mg 1X ONCE PO Last administered on 05/19/21at 13:41; Start 05/19/21 at 13:15; Stop 05/19/21 at 13:16; Status DC Vitals/I & O Vital Sign - Last 24 Hours 05/19/21 05/19/21 05/19/21 05/19/21 14:17 19:00 19:45 21:03 Temp 98.2 97.8 98.2 97.8 Pulse 66 60 60 Resp 18 16 B/P (MAP) 155/61 (92) 193/75 (114) 193/75 Pulse Ox 97 96 O2 Delivery Room Air Room Air Room Air 05/19/21 05/20/21 05/20/21 05/20/21 23:00 00:00 01:39 03:00 Temp 98.1 97.7 98.1 97.7 Pulse 65 64 68 71 Resp 16 18 B/P (MAP) 197/74 (115) 185/72 (109) 217/73 143/74 (97) Pulse Ox 95 95 O2 Delivery Room Air Room Air 05/20/21 05/20/21 05/20/21 05/20/21 07:00 08:10 08:44 08:44 Temp 98.4 98.4 Pulse 67 65 65 Resp 18 B/P (MAP) 194/81 (118) Pulse Ox 96 O2 Delivery Room Air Room Air 05/20/21 11:22 Temp 98.0 98.0 Pulse 65 Resp 18 B/P (MAP) 141/91 (108) Pulse Ox 96 O2 Delivery Room Air Intake and Output 05/19/21 05/19/21 05/20/21 15:00 23:00 07:00 Intake Total 200 ml 100 ml Output Total 200 ml 300 ml 825 ml Balance 0 ml -200 ml -825 ml LOLA REYNOSO MD May 20, 2021 12:20
--- NOTE | 2021-05-20 12:35 | PDOC ---
PROGRESS NOTES Date of Service DATE: 05/20/21 TIME: 12:30 Assessment 1. Acute stroke left putamen with extension into external capsule leading to right hemiparesis affecting leg more than arm. He feels he is improving on a daily basis. He has better movement of the arm but still difficulty with much movement of his leg. 2. Heart block requiring a permanent pacemaker. Arm is currently in a brace to prevent pacemaker leads from dislodging. 3. Hypertension 4. Hyperlipidemia with LDL cholesterol at 92 5. Diabetes with a hemoglobin A1c of 6.5 6. Vascular disease with MRA of the neck revealing 50-69% stenosis of the supraclinoid right internal carotid artery and less than 50% stenosis on the left. Plan 1. He may transfer to rehabilitation from a neurologic perspective when medically stable. 2. He will he is a statin for hyperlipidemia 3. He will need to modify his diet to try to control the blood sugars 4. Blood pressure will need to be monitored and medication gradually adjusted to gain better control. Subjective I feel good. I am not in any pain from the pacemaker insertion. It does not feel like there is anything there. I am moving my right side a little bit better each day. I still have a lot of trouble with my right leg. Objective Vital Signs Date Time Temp Pulse Resp B/P (MAP) Pulse Ox O2 Delivery O2 Flow Rate FiO2 05/20/21 11:22 98.0 65 18 141/91 (108) 96 Room Air 98.0 Intake and Output 05/20/21 07:00 Intake Total 300 ml Output Total 1325 ml Balance -1025 ml Intake Oral 300 ml Output Urine Total 1325 ml PHYSICAL EXAM He was alert, awake and cooperative. Speech was fluent and clear. He had a good fund of recent and remote knowledge. Attention and concentration was intact. He appeared well groomed and well nourished. He was fully oriented. Examination of the cranial nerves revealed visual cardozo were full to confrontation. Extraocular movements were intact. The eyes were conjugate. Pu pils were 3 mm. Facial sensation was intact. The muscles of mastication and facial expression were powerful symmetrically. There was no delay of initiation of smile. Hearing was intact to finger rub. The palate arched symmetrically and the tongue was midline. Muscle bulk was symmetric. He was not spastic or rigid. Power appeared full on the left. In the right arm power was 4/5. Power in the right leg 1/5. Sensation was intact to light touch and sharp bilaterally. Gait was not testable. Review of Relevant I have reviewed the following items saúl (where applicable) has been applied. Labs Laboratory Tests Test 05/18/21 16:59 05/18/21 20:56 05/19/21 04:00 05/19/21 07:21 Glucose (Fingerstick) 117 mg/dL (70-99) 118 mg/dL (70-99) 116 mg/dL (70-99) Sodium Level 137 mmol/L (136-145) Potassium Level 3.8 mmol/L (3.5-5.1) Chloride Level 100 mmol/L (98-107) Carbon Dioxide Level 24 mmol/L (21-32) Anion Gap 13 (6-14) Blood Urea Nitrogen 21 mg/dL (8-26) Creatinine 1.5 mg/dL (0.7-1.3) Estimated GFR (Cockcroft-Gault) 45.0 Glucose Level 103 mg/dL (70-99) Hemoglobin A1c 6.5 % (4.8-5.6) Calcium Level 8.9 mg/dL (8.5-10.1) Triglycerides Level 74 mg/dL (0-150) Cholesterol Level 149 mg/dL (0-200) LDL Cholesterol, Calculated 92 mg/dL (0-100) VLDL Cholesterol, Calculated 15 mg/dL (0-40) Non-HDL Cholesterol Calculated 107 mg/dL (0-129) HDL Cholesterol 42 mg/dL (40-60) Cholesterol/HDL Ratio 3.5 Test 05/19/21 11:07 05/19/21 16:08 05/19/21 20:41 05/20/21 07:43 Glucose (Fingerstick) 132 mg/dL (70-99) 117 mg/dL (70-99) 117 mg/dL (70-99) 106 mg/dL (70-99) Test 05/20/21 11:54 Glucose (Fingerstick) 126 mg/dL (70-99) Laboratory Tests Test 05/19/21 16:08 05/19/21 20:41 05/20/21 07:43 05/20/21 11:54 Glucose (Fingerstick) 117 mg/dL (70-99) 117 mg/dL (70-99) 106 mg/dL (70-99) 126 mg/dL (70-99) Medications Current Medications Hydralazine HCl (Apresoline Inj) 10 mg PRN Q4HRS PRN IVP ELEVATED BP, SEE COMMENTS Last administered on 05/20/21at 01:39; Start 05/17/21 at 10:45 Lidocaine/ Epinephrine (LIDOCAINE 2%-EPI 1:100,000 multi-dose) 20 ml STK-MED ONCE .ROUTE ; Start 05/17/21 at 10:54; Stop 05/17/21 at 10:54; Status DC Atorvastatin Calcium (Lipitor) 80 mg QHS PO Last administered on 05/19/21at 20:27; Start 05/17/21 at 21:00 Acetaminophen (Tylenol) 650 mg PRN Q6HRS PRN PO MILD PAIN / TEMP > 100.3'F Last administered on 05/20/21at 03:14; Start 05/17/21 at 11:15 Aspirin (Ecotrin) 325 mg DAILYWBKFT PO Last administered on 05/20/21at 08:44; Start 05/18/21 at 08:00 Aspirin (Aspirin Rectal Supp) 300 mg PRN DAILY PRN OK IF UNABLE TO TAKE PO; Start 05/17/21 at 11:15 Cefazolin Sodium/ Dextrose 50 ml @ 100 mls/hr 1X ONCE IV Last administered on 05/17/21at 12:30; Start 05/17/21 at 13:00; Stop 05/17/21 at 13:29; Status DC Cefazolin Sodium 1 gm/Sodium Chloride 100 ml @ 600 mls/hr 1X ONCE IRR Last administered on 05/17/21at 13:15; Start 05/17/21 at 12:15; Stop 05/17/21 at 12:24; Status DC Midazolam HCl (Versed) 2 mg 1X ONCE IV Last administered on 05/17/21at 12:44; Start 05/17/21 at 12:15; Stop 05/17/21 at 12:29; Status DC Fentanyl Citrate (Fentanyl 2ml Vial) 100 mcg 1X ONCE IV Last administered on 05/17/21at 12:44; Start 05/17/21 at 12:15; Stop 05/17/21 at 12:29; Status DC Lidocaine/ Epinephrine (LIDOCAINE 2%-EPI 1:100,000 multi-dose) 20 ml 1X ONCE IJ Last administered on 05/17/21at 12:44; Start 05/17/21 at 12:15; Stop 05/17/21 at 12:29; Status DC Iodixanol (Visipaque 320) 100 ml STK-MED ONCE .ROUTE ; Start 05/17/21 at 12:51; Stop 05/17/21 at 12:52; Status DC Iodixanol (Visipaque 320) 100 ml 1X ONCE IART Last administered on 05/17/21at 13:39; Start 05/17/21 at 13:45; Stop 05/17/21 at 13:46; Status DC Info (CONTRAST GIVEN -- Rx MONITORING) 1 each PRN DAILY PRN MC SEE COMMENTS; Start 05/17/21 at 13:45; Stop 05/19/21 at 13:44; Status DC Hydralazine HCl (Apresoline Inj) 20 mg STK-MED ONCE .ROUTE ; Start 05/17/21 at 13:53; Stop 05/17/21 at 13:54; Status DC Cefazolin Sodium/ Dextrose 50 ml @ 100 mls/hr 1X ONCE IV Last administered on 05/17/21at 18:25; Start 05/17/21 at 18:30; Stop 05/17/21 at 18:59; Status DC Amlodipine Besylate (Norvasc) 10 mg DAILY PO Last administered on 05/20/21at 08:44; Start 05/18/21 at 09:00 Lisinopril (Prinivil) 20 mg DAILY PO Last administered on 05/18/21at 07:45; Start 05/18/21 at 09:00; Stop 05/18/21 at 21:52; Status DC Amlodipine Besylate (Norvasc) 10 mg 1X ONCE PO Last administered on 05/17/21at 22:39; Start 05/17/21 at 22:30; Stop 05/17/21 at 22:31; Status DC Lisinopril (Prinivil) 20 mg 1X ONCE PO Last administered on 05/17/21at 22:40; Start 05/17/21 at 22:30; Stop 05/17/21 at 22:31; Status DC Lisinopril (Prinivil) 40 mg DAILY PO Last administered on 05/20/21at 08:44; Start 05/19/21 at 09:00 Hydrochlorothiazide (Microzide) 12.5 mg 1X ONCE PO Last administered on 05/19/21at 13:41; Start 05/19/21 at 13:15; Stop 05/19/21 at 13:16; Status DC Active Scripts Active Reported Aspirin 81 Mg Tab.chew 81 Mg PO DAILY Saw [place] (Saw [place] Fruit) 450 Mg Capsule 450 Mg PO DAILY Simvastatin 20 Mg Tablet 20 Mg PO HS Omeprazole 40 Mg Capsule.dr 40 Mg PO DAILY Lisinopril 20 Mg Tablet 20 Mg PO DAILY Amlodipine Besylate 10 Mg Tablet 10 Mg PO DAILY Vitals/I & O Vital Sign - Last 24 Hours 05/19/21 05/19/21 05/19/21 05/19/21 14:17 19:00 19:45 21:03 Temp 98.2 97.8 98.2 97.8 Pulse 66 60 60 Resp 18 16 B/P (MAP) 155/61 (92) 193/75 (114) 193/75 Pulse Ox 97 96 O2 Delivery Room Air Room Air Room Air 05/19/21 05/20/21 05/20/21 05/20/21 23:00 00:00 01:39 03:00 Temp 98.1 97.7 98.1 97.7 Pulse 65 64 68 71 Resp 16 18 B/P (MAP) 197/74 (115) 185/72 (109) 217/73 143/74 (97) Pulse Ox 95 95 O2 Delivery Room Air Room Air 05/20/21 05/20/21 05/20/21 05/20/21 07:00 08:10 08:44 08:44 Temp 98.4 98.4 Pulse 67 65 65 Resp 18 B/P (MAP) 194/81 (118) Pulse Ox 96 O2 Delivery Room Air Room Air 05/20/21 11:22 Temp 98.0 98.0 Pulse 65 Resp 18 B/P (MAP) 141/91 (108) Pulse Ox 96 O2 Delivery Room Air Intake and Output 05/19/21 05/19/21 05/20/21 15:00 23:00 07:00 Intake Total 200 ml 100 ml Output Total 200 ml 300 ml 825 ml Balance 0 ml -200 ml -825 ml Justicifation of Admission Dx: Justifications for Admission: Justification of Admission Dx: Yes JAROD SHERIDAN MD May 20, 2021 12:35
--- NOTE | 2021-05-20 12:45 | PDOC1 ---
History and Physical Date of Admission Date of Admission DATE: 05/20/21 TIME: 12:34 Identification/Chief Complaint Chief Complaint right weakness Source Source: Chart review, Patient History of Present Illness History of Present Illness Mr. Santana is an 81-year-old right-handed male transferred her [facility] on 05.17 for generalized weakness. New problem with right leg and could not walk. Taken here for heart blockj pacer placed, MRI done, treated for acute stroke, modalities done pacer placed for heart block Past Medical History Cardiovascular: HTN, Hyperlipidemia GI: GERD, Other (Hiatal hernia) Past Surgical History Past Surgical History: Cholecystectomy, Hernia Repair (Umbilical), Total hip replacement (Left), Tonsillectomy Family History Family History: No Significant Social History Smoke: No ALCOHOL: none Current Medications Current Medications Current Medications Hydralazine HCl (Apresoline Inj) 10 mg PRN Q4HRS PRN IVP ELEVATED BP, SEE COMMENTS Last administered on 05/20/21at 01:39; Start 05/17/21 at 10:45 Lidocaine/ Epinephrine (LIDOCAINE 2%-EPI 1:100,000 multi-dose) 20 ml STK-MED ONCE .ROUTE ; Start 05/17/21 at 10:54; Stop 05/17/21 at 10:54; Status DC Atorvastatin Calcium (Lipitor) 80 mg QHS PO Last administered on 05/19/21at 20:27; Start 05/17/21 at 21:00 Acetaminophen (Tylenol) 650 mg PRN Q6HRS PRN PO MILD PAIN / TEMP > 100.3'F Last administered on 05/20/21at 03:14; Start 05/17/21 at 11:15 Aspirin (Ecotrin) 325 mg DAILYWBKFT PO Last administered on 05/20/21at 08:44; Start 05/18/21 at 08:00 Aspirin (Aspirin Rectal Supp) 300 mg PRN DAILY PRN ME IF UNABLE TO TAKE PO; Start 05/17/21 at 11:15 Cefazolin Sodium/ Dextrose 50 ml @ 100 mls/hr 1X ONCE IV Last administered on 05/17/21at 12:30; Start 05/17/21 at 13:00; Stop 05/17/21 at 13:29; Status DC Cefazolin Sodium 1 gm/Sodium Chloride 100 ml @ 600 mls/hr 1X ONCE IRR Last administered on 05/17/21at 13:15; Start 05/17/21 at 12:15; Stop 05/17/21 at 12:24; Status DC Midazolam HCl (Versed) 2 mg 1X ONCE IV Last administered on 05/17/21at 12:44; Start 05/17/21 at 12:15; Stop 05/17/21 at 12:29; Status DC Fentanyl Citrate (Fentanyl 2ml Vial) 100 mcg 1X ONCE IV Last administered on 05/17/21at 12:44; Start 05/17/21 at 12:15; Stop 05/17/21 at 12:29; Status DC Lidocaine/ Epinephrine (LIDOCAINE 2%-EPI 1:100,000 multi-dose) 20 ml 1X ONCE IJ Last administered on 05/17/21at 12:44; Start 05/17/21 at 12:15; Stop 05/17/21 at 12:29; Status DC Iodixanol (Visipaque 320) 100 ml STK-MED ONCE .ROUTE ; Start 05/17/21 at 12:51; Stop 05/17/21 at 12:52; Status DC Iodixanol (Visipaque 320) 100 ml 1X ONCE IART Last administered on 05/17/21at 13:39; Start 05/17/21 at 13:45; Stop 05/17/21 at 13:46; Status DC Info (CONTRAST GIVEN -- Rx MONITORING) 1 each PRN DAILY PRN MC SEE COMMENTS; Start 05/17/21 at 13:45; Stop 05/19/21 at 13:44; Status DC Hydralazine HCl (Apresoline Inj) 20 mg STK-MED ONCE .ROUTE ; Start 05/17/21 at 13:53; Stop 05/17/21 at 13:54; Status DC Cefazolin Sodium/ Dextrose 50 ml @ 100 mls/hr 1X ONCE IV Last administered on 05/17/21at 18:25; Start 05/17/21 at 18:30; Stop 05/17/21 at 18:59; Status DC Amlodipine Besylate (Norvasc) 10 mg DAILY PO Last administered on 05/20/21at 08:44; Start 05/18/21 at 09:00 Lisinopril (Prinivil) 20 mg DAILY PO Last administered on 05/18/21at 07:45; Start 05/18/21 at 09:00; Stop 05/18/21 at 21:52; Status DC Amlodipine Besylate (Norvasc) 10 mg 1X ONCE PO Last administered on 05/17/21at 22:39; Start 05/17/21 at 22:30; Stop 05/17/21 at 22:31; Status DC Lisinopril (Prinivil) 20 mg 1X ONCE PO Last administered on 05/17/21at 22:40; Start 05/17/21 at 22:30; Stop 05/17/21 at 22:31; Status DC Lisinopril (Prinivil) 40 mg DAILY PO Last administered on 05/20/21at 08:44; Start 05/19/21 at 09:00 Hydrochlorothiazide (Microzide) 12.5 mg 1X ONCE PO Last administered on 05/19/21at 13:41; Start 05/19/21 at 13:15; Stop 05/19/21 at 13:16; Status DC Active Scripts Active Reported Aspirin 81 Mg Tab.chew 81 Mg PO DAILY Saw [place] (Saw [place] Fruit) 450 Mg Capsule 450 Mg PO DAILY Simvastatin 20 Mg Tablet 20 Mg PO HS Omeprazole 40 Mg Capsule.dr 40 Mg PO DAILY Lisinopril 20 Mg Tablet 20 Mg PO DAILY Amlodipine Besylate 10 Mg Tablet 10 Mg PO DAILY Allergies Allergies: Coded Allergies: No Known Allergies (Verified Allergy, Unknown, 05/17/21) ROS General: No: Chills, Night Sweats, Fatigue, Malaise, Appetite, Other PSYCHOLOGICAL ROS: No: Anxiety, Behavioral Disorder, Concentration difficultie, Decreased libido, Depression, Disorientation, Hallucinations, Hostility, Irritablity, Memory difficulties, Mood Swings, Obsessive thoughts, Physical abuse, Sexual abuse, Sleep disturbances, Suicidal ideation, Other Eyes: No Blurry vision, No Decreased vision, No Double vision, No Dry eyes, No Excessive tearing, No Eye Pain, No Itchy Eyes, No Loss of vision, No Photophobia, No Scotomata, No Uses contacts, No Uses glasses, No Other HEENT: YES: Heacaches; No: Visual Changes, Hearing change, Nasal congestion, Nasal discharge, Oral lesions, Sinus pain, Sore Throat, Epistaxis, Sneezing, Snoring, Tinnitus, Vertigo, Vocal changes, Other Respiratory: No: Cough, Hemoptysis, Orthopnea, Pleuritic Pain, Shortness of breath, SOB with excertion, Sputum Changes, Stridor, Tachypnea, Wheezing, Other Cardiovascular: No Chest Pain, No Palpitations, No Orthopnea, No Paroxysmal Noc. Dyspnea, No Edema, No Lt Headedness, No Other Gastrointestinal: No Nausea, No Vomiting, No Abdominal Pain, No Diarrhea, No Constipation, No Melena, No Hematochezia, No Other Genitourinary: YES Discharge Musculoskeletal: Yes Gait Disturbance, Yes Muscular Weakness Neurological: Yes Gait Disturbance; No Behavorial Changes, No Bowel/Bladder ControlChng, No Confusion, No Dizz iness, No Headaches, No Impaired Coord/balance, No Memory Loss, No Numbness/Tingling, No Seizures, No Speech Problems, No Tremors, No Visual Changes, No Weakness, No Other Skin: No Dry Skin, No Eczema, No Hair Changes, No Lumps, No Mole Changes, No Mottling, No Nail Changes, No Pruritus, No Rash, No Skin Lesion Changes, No Other, No Acne Physical Exam General: Alert, Oriented X3, Cooperative HEENT: Atraumatic Lungs: Clear to auscultation Heart: S1S2, RRR Rectal Exam: not examined Extremities: No cyanosis, Normal pulses Skin: No breakdown Neuro: Normal speech, Sensation intact Psych/Mental Status: Mental status NL, Mood NL Vitals Vitals Vital Signs Date Time Temp Pulse Resp B/P (MAP) Pulse Ox O2 Delivery O2 Flow Rate FiO2 05/20/21 11:22 98.0 65 18 141/91 (108) 96 Room Air 98.0 05/17/21 19:45 2.0 Labs Labs Laboratory Tests Test 05/18/21 16:59 05/18/21 20:56 05/19/21 04:00 05/19/21 07:21 Glucose (Fingerstick) 117 mg/dL (70-99) 118 mg/dL (70-99) 116 mg/dL (70-99) Sodium Level 137 mmol/L (136-145) Potassium Level 3.8 mmol/L (3.5-5.1) Chloride Level 100 mmol/L (98-107) Carbon Dioxide Level 24 mmol/L (21-32) Anion Gap 13 (6-14) Blood Urea Nitrogen 21 mg/dL (8-26) Creatinine 1.5 mg/dL (0.7-1.3) Estimated GFR (Cockcroft-Gault) 45.0 Glucose Level 103 mg/dL (70-99) Hemoglobin A1c 6.5 % (4.8-5.6) Calcium Level 8.9 mg/dL (8.5-10.1) Triglycerides Level 74 mg/dL (0-150) Cholesterol Level 149 mg/dL (0-200) LDL Cholesterol, Calculated 92 mg/dL (0-100) VLDL Cholesterol, Calculated 15 mg/dL (0-40) Non-HDL Cholesterol Calculated 107 mg/dL (0-129) HDL Cholesterol 42 mg/dL (40-60) Cholesterol/HDL Ratio 3.5 Test 05/19/21 11:07 05/19/21 16:08 05/19/21 20:41 05/20/21 07:43 Glucose (Fingerstick) 132 mg/dL (70-99) 117 mg/dL (70-99) 117 mg/dL (70-99) 106 mg/dL (70-99) Test 05/20/21 11:54 Glucose (Fingerstick) 126 mg/dL (70-99) Laboratory Tests Test 05/19/21 16:08 05/19/21 20:41 05/20/21 07:43 05/20/21 11:54 Glucose (Fingerstick) 117 mg/dL (70-99) 117 mg/dL (70-99) 106 mg/dL (70-99) 126 mg/dL (70-99) Images Images IMPRESSION: MRI 1. Acute infarct involving the posterior left putamen and adjacent external capsule and periventricular white matter. 2. Bilateral cerebral white matter changes, most commonly due to chronic small vessel disease in a patient of this age. 3. Cerebral volume loss. 4. Suspected atherosclerosis involving the supraclinoid internal carotid arteries, resulting in 50-69 percent stenosis on the right and less than 50 percent stenosis on the left. No additional stenosis or occlusion is seen. VTE Prophylaxis Ordered VTE Prophylaxis Devices: Yes VTE Pharmacological Prophylaxi: No Assessment/Plan Assessment/Plan weakneass, post CVA, with hemiparesis, needs rehab, acute rehab planned acute complete heart block, now s/p dual chamber pacer \CKD 3 htn Justifications for Admission Other Justification AYANNA JEAN-BAPTISTE MD May 20, 2021 12:45
[2021-05-20] MEDS: ATORVASTATIN CALCIUM 40 MG TABLET. PO SCH (22:30)
[2021-05-21 02:35] VITALS: BP 143/60
[2021-05-21 05:03] LABS: BASO % 1 % (0-3); EOS # 0.1 x10^3/uL (0.0-0.7); EOS % 1 % (0-3); HEMATOCRIT 42.9 % (39.0-53.0); HEMOGLOBIN 14.5 g/dL (13.0-17.5); LYMPH % 13 % (24-48); MEAN CORPUSCULAR HEMOGLOBIN 31 pg (25-35); MEAN CORPUSCULAR HGB CONC 34 g/dL (31-37); MEAN CORPUSCULAR VOLUME 92 fL (79-100); MONO # 0.7 x10^3/uL (0.0-1.1); MONO % 9 % (0-9); NEUT # 5.9 x10^3/uL (1.8-7.7); NEUT % 76 % (31-73); PLATELET COUNT 155 x10^3/uL (140-400); RED BLOOD COUNT 4.65 x10^6/uL (4.30-5.70); RED CELL DISTRIBUTION WIDTH 14.5 % (11.5-14.5); WHITE BLOOD COUNT 7.7 x10^3/uL (4.0-11.0)
[2021-05-21 05:24] LABS: ALBUMIN 3.1 g/dL (3.4-5.0); ALBUMIN/GLOBULIN RATIO 0.8 (1.0-1.7); CREATININE 1.5 mg/dL (0.7-1.3); POTASSIUM 3.7 mmol/L (3.5-5.1); TOTAL BILIRUBIN 0.7 mg/dL (0.2-1.0); TOTAL PROTEIN 6.9 g/dL (6.4-8.2)
[2021-05-21 07:00] VITALS: BP 156/84
[2021-05-21] MEDS: LISINOPRIL 20 MG TABLET PO SCH (09:19)
[2021-05-21] MEDS: ASPIRIN ENTERIC COATED 325 MG TABLET.DR. PO SCH (09:20)
[2021-05-21] MEDS: ACETAMINOPHEN 325 MG TABLET. PO PRN (09:20)
[2021-05-21 11:38] VITALS: BP 166/67
--- NOTE | 2021-05-21 12:13 | PDOC ---
PROGRESS NOTES Date of Service: DATE: 05/21/21 TIME: 12:12 Subjective Subjective Denied any chest pain or shortness of breath Objective Objective Vital Signs Date Time Temp Pulse Resp B/P (MAP) Pulse Ox O2 Delivery O2 Flow Rate FiO2 05/21/21 11:38 97.4 63 20 166/67 (100) 97 Room Air 97.4 Intake and Output 05/21/21 07:00 Intake Total 250 ml Output Total 400 ml Balance -150 ml Intake Oral 250 ml Output Urine Total 400 ml Physical Exam Abdomen: Normal bowel sounds, No tenderness Heart: Regular rate, No murmurs Extremities: No cyanosis, Normal pulses General: Alert, Oriented X3, Cooperative HEENT: Atraumatic Lungs: Clear to auscultation Neuro: Normal speech, Sensation intact Psych/Mental Status: Mental status NL, Mood NL Skin: No breakdown Assessment Assessment 1. 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 Neurology following. 2. Symptomatic bradycardia/SSS; EF and WM nml, s/p permanent pacemaker implantation. Telemetry showed paced rhythm. 3. Accelerated HTN: labile but better controlled 4. HLP: Continue statins 5. Subclinical hypothyroidism 6. S/P PPM: medtronic, repeat interrogation revealed nml function. Tolerated procedure well. AV pacing 7. Hyperglycemia: A1C pending Waiting for availability of bed at [facility] rehab. Comment Review of Relevant I have reviewed the following items saúl (where applicable) has been applied. Labs Laboratory Tests Test 05/20/21 17:19 05/20/21 20:48 05/21/21 04:30 05/21/21 08:00 Glucose (Fingerstick) 129 mg/dL (70-99) 117 mg/dL (70-99) 112 mg/dL (70-99) White Blood Count 7.7 x10^3/uL (4.0-11.0) Red Blood Count 4.65 x10^6/uL (4.30-5.70) Hemoglobin 14.5 g/dL (13.0-17.5) Hematocrit 42.9 % (39.0-53.0) Mean Corpuscular Volume 92 fL (79-100) Mean Corpuscular Hemoglobin 31 pg (25-35) Mean Corpuscular Hemoglobin Concent 34 g/dL (31-37) Red Cell Distribution Width 14.5 % (11.5-14.5) Platelet Count 155 x10^3/uL (140-400) Neutrophils (%) (Auto) 76 % (31-73) Lymphocytes (%) (Auto) 13 % (24-48) Monocytes (%) (Auto) 9 % (0-9) Eosinophils (%) (Auto) 1 % (0-3) Basophils (%) (Auto) 1 % (0-3) Neutrophils # (Auto) 5.9 x10^3/uL (1.8-7.7) Lymphocytes # (Auto) 1.0 x10^3/uL (1.0-4.8) Monocytes # (Auto) 0.7 x10^3/uL (0.0-1.1) Eosinophils # (Auto) 0.1 x10^3/uL (0.0-0.7) Basophils # (Auto) 0.0 x10^3/uL (0.0-0.2) Sodium Level 139 mmol/L (136-145) Potassium Level 3.7 mmol/L (3.5-5.1) Chloride Level 104 mmol/L (98-107) Carbon Dioxide Level 26 mmol/L (21-32) Anion Gap 9 (6-14) Blood Urea Nitrogen 33 mg/dL (8-26) Creatinine 1.5 mg/dL (0.7-1.3) Estimated GFR (Cockcroft-Gault) 45.0 BUN/Creatinine Ratio 22 (6-20) Glucose Level 110 mg/dL (70-99) Calcium Level 9.0 mg/dL (8.5-10.1) Total Bilirubin 0.7 mg/dL (0.2-1.0) Aspartate Amino Transf (AST/SGOT) 28 U/L (15-37) Alanine Aminotransferase (ALT/SGPT) 26 U/L (16-63) Alkaline Phosphatase 94 U/L (46-116) Total Protein 6.9 g/dL (6.4-8.2) Albumin 3.1 g/dL (3.4-5.0) Albumin/Globulin Ratio 0.8 (1.0-1.7) Test 05/21/21 11:23 Glucose (Fingerstick) 106 mg/dL (70-99) Vitals/I & O Vital Sign - Last 24 Hours 05/20/21 05/20/21 05/20/21 05/20/21 15:52 19:00 20:00 22:34 Temp 97.6 97.9 97.6 97.9 Pulse 63 63 63 Resp 16 20 B/P (MAP) 188/65 (106) 208/72 (117) 208/72 Pulse Ox 97 95 O2 Delivery Room Air Room Air Room Air 05/20/21 05/21/21 05/21/21 05/21/21 22:35 02:35 07:00 08:00 Temp 97.7 97.3 97.4 97.7 97.3 97.4 Pulse 65 68 69 Resp 18 19 20 B/P (MAP) 191/83 (119) 143/60 (87) 156/84 (108) Pulse Ox 97 96 91 O2 Delivery Room Air Room Air Room Air Room Air 05/21/21 05/21/21 05/21/21 09:19 09:20 11:38 Temp 97.4 97.4 Pulse 69 69 63 Resp 20 B/P (MAP) 156/84 156/84 166/67 (100) Pulse Ox 97 O2 Delivery Room Air Intake and Output 05/20/21 05/20/21 05/21/21 15:00 23:00 07:00 Intake Total 100 ml 0 ml 150 ml Output Total 200 ml 200 ml Balance -100 ml -200 ml 150 ml LOLA REYNOSO MD May 21, 2021 12:13
--- NOTE | 2021-05-21 14:49 | PDOC ---
[facility] PROGRESS NOTE Date of Service DOS: DATE: 05/21/21 TIME: 14:47 Chief Complaint Chief Complaint 1. 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 3. complete Heart block requiring a permanent pacemaker. 4. Hyperlipidemia and htn 5. Diabetes 2 - good contorl 6. carotid artery stenosis, mild History of Present Illness History of Present Illness planning transfer to rehabilitation, [facility], cont meds, PT andOT Vitals/I&O Vitals/I&O: Vital Signs Date Time Temp Pulse Resp B/P (MAP) Pulse Ox O2 Delivery O2 Flow Rate FiO2 05/21/21 11:38 97.4 63 20 166/67 (100) 97 Room Air 97.4 I & O 05/20/21 05/20/21 05/21/21 15:00 23:00 07:00 Intake Total 100 ml 0 ml 150 ml Output Total 200 ml 200 ml Balance -100 ml -200 ml 150 ml Physical Exam General: Alert, Oriented X3, Cooperative Heart: Regular rate, No murmurs Lungs: Clear Abdomen: Normal bowel sounds, No tenderness Extremities: No cyanosis, Normal pulses Skin: No breakdown Labs Labs: Laboratory Tests Test 05/20/21 17:19 05/20/21 20:48 05/21/21 04:30 05/21/21 08:00 Glucose (Fingerstick) 129 mg/dL (70-99) 117 mg/dL (70-99) 112 mg/dL (70-99) White Blood Count 7.7 x10^3/uL (4.0-11.0) Red Blood Count 4.65 x10^6/uL (4.30-5.70) Hemoglobin 14.5 g/dL (13.0-17.5) Hematocrit 42.9 % (39.0-53.0) Mean Corpuscular Volume 92 fL (79-100) Mean Corpuscular Hemoglobin 31 pg (25-35) Mean Corpuscular Hemoglobin Concent 34 g/dL (31-37) Red Cell Distribution Width 14.5 % (11.5-14.5) Platelet Count 155 x10^3/uL (140-400) Neutrophils (%) (Auto) 76 % (31-73) Lymphocytes (%) (Auto) 13 % (24-48) Monocytes (%) (Auto) 9 % (0-9) Eosinophils (%) (Auto) 1 % (0-3) Basophils (%) (Auto) 1 % (0-3) Neutrophils # (Auto) 5.9 x10^3/uL (1.8-7.7) Lymphocytes # (Auto) 1.0 x10^3/uL (1.0-4.8) Monocytes # (Auto) 0.7 x10^3/uL (0.0-1.1) Eosinophils # (Auto) 0.1 x10^3/uL (0.0-0.7) Basophils # (Auto) 0.0 x10^3/uL (0.0-0.2) Sodium Level 139 mmol/L (136-145) Potassium Level 3.7 mmol/L (3.5-5.1) Chloride Level 104 mmol/L (98-107) Carbon Dioxide Level 26 mmol/L (21-32) Anion Gap 9 (6-14) Blood Urea Nitrogen 33 mg/dL (8-26) Creatinine 1.5 mg/dL (0.7-1.3) Estimated GFR (Cockcroft-Gault) 45.0 BUN/Creatinine Ratio 22 (6-20) Glucose Level 110 mg/dL (70-99) Calcium Level 9.0 mg/dL (8.5-10.1) Total Bilirubin 0.7 mg/dL (0.2-1.0) Aspartate Amino Transf (AST/SGOT) 28 U/L (15-37) Alanine Aminotransferase (ALT/SGPT) 26 U/L (16-63) Alkaline Phosphatase 94 U/L (46-116) Total Protein 6.9 g/dL (6.4-8.2) Albumin 3.1 g/dL (3.4-5.0) Albumin/Globulin Ratio 0.8 (1.0-1.7) Test 05/21/21 11:23 Glucose (Fingerstick) 106 mg/dL (70-99) Review of Systems Review of Systems: no nv.d no pain cannot transfer without assit, right leg cannot bear weight Comment Review of Relevant I have reviewed the following items saúl (where applicable) has been applied. Justifications for Admission Other Justification AYANNA JEAN-BAPTISTE MD May 21, 2021 14:49
[2021-05-21 14:56] VITALS: BP 186/75
[2021-05-21 19:01] VITALS: BP 173/63
[2021-05-21] MEDS: hydrALAZINE 20 MG/ML VIAL. IVP PRN (19:34)
[2021-05-21] MEDS: ATORVASTATIN CALCIUM 40 MG TABLET. PO SCH (19:34)
[2021-05-21 22:32] VITALS: BP 182/63
[2021-05-22 02:47] VITALS: BP 177/68
[2021-05-22 07:00] VITALS: BP 188/92
[2021-05-22] MEDS: ASPIRIN ENTERIC COATED 325 MG TABLET.DR. PO SCH (08:20)
[2021-05-22] MEDS: LISINOPRIL 20 MG TABLET PO SCH (08:21)
[2021-05-22 11:00] VITALS: BP 159/72
--- NOTE | 2021-05-22 12:46 | PDOC ---
PROGRESS NOTES Date of Service: DATE: 05/22/21 TIME: 12:45 Subjective Subjective No new complaints Objective Objective Vital Signs Date Time Temp Pulse Resp B/P (MAP) Pulse Ox O2 Delivery O2 Flow Rate FiO2 05/22/21 08:21 68 188/92 05/22/21 08:00 Room Air 05/22/21 07:00 97.8 16 90 97.8 Intake and Output 05/22/21 07:00 Intake Total 120 ml Output Total 800 ml Balance -680 ml Intake Oral 120 ml Output Urine Total 800 ml # Voids 1 Physical Exam Abdomen: Normal bowel sounds, No tenderness Heart: Regular rate, No murmurs Extremities: No cyanosis, Normal pulses General: Alert, Oriented X3, Cooperative HEENT: Atraumatic Lungs: Clear to auscultation Neuro: Normal speech, Sensation intact Psych/Mental Status: Mental status NL, Mood NL Skin: No breakdown Assessment Assessment 1. 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 Neurology following. 2. Symptomatic bradycardia/SSS; EF and WM nml, s/p permanent pacemaker implantation. Telemetry showed paced rhythm. 3. Accelerated HTN: Blood pressure elevated. Start metoprolol. Continue other medications. 4. HLP: Continue statins 5. Subclinical hypothyroidism 6. S/P PPM: medtronic, repeat interrogation revealed nml function. Tolerated procedure well. AV pacing 7. Hyperglycemia: A1C pending Waiting for availability of bed at [facility] rehab. Comment Review of Relevant I have reviewed the following items saúl (where applicable) has been applied. Labs Laboratory Tests Test 05/21/21 16:26 05/21/21 21:17 05/22/21 07:39 05/22/21 12:05 Glucose (Fingerstick) 124 mg/dL (70-99) 111 mg/dL (70-99) 121 mg/dL (70-99) 113 mg/dL (70-99) Vitals/I & O Vital Sign - Last 24 Hours 05/21/21 05/21/21 05/21/21 05/21/21 14:56 19:01 19:14 19:34 Temp 98.0 97.7 98.0 97.7 Pulse 66 67 67 Resp 18 16 B/P (MAP) 186/75 (112) 173/63 (99) 173/63 Pulse Ox 97 96 O2 Delivery Room Air Room Air Room Air 05/21/21 05/22/21 05/22/21 05/22/21 22:32 02:47 07:00 08:00 Temp 97.9 97.8 97.8 97.9 97.8 97.8 Pulse 70 62 68 Resp 16 16 16 B/P (MAP) 182/63 (102) 177/68 (104) 188/92 (124) Pulse Ox 95 95 90 O2 Delivery Room Air Room Air Room Air Room Air 05/22/21 05/22/21 08:20 08:21 Pulse 68 68 B/P (MAP) 188/92 188/92 Intake and Output 05/21/21 05/21/21 05/22/21 15:00 23:00 07:00 Intake Total 0 ml 120 ml Output Total 200 ml 600 ml Balance -200 ml 0 ml -480 ml LOLA REYNOSO MD May 22, 2021 12:46
[2021-05-22 15:00] VITALS: BP 156/64
--- NOTE | 2021-05-22 15:07 | PDOC ---
[facility] PROGRESS NOTE Date of Service DOS: DATE: 05/22/21 TIME: 15:03 Chief Complaint Chief Complaint 1. 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 3. complete Heart block requiring a permanent pacemaker. 4. Hyperlipidemia and htn 5. Diabetes 2 - good contorl 6. carotid artery stenosis, mild History of Present Illness History of Present Illness 05/22/21 No acute events overnight. Patient seen and examined bedside. No concerns with nursing. Pending bed availability at [facility] reh. Patient's chart, labs, images were reviewed and discussed with RN Vitals/I&O Vitals/I&O: Vital Signs Date Time Temp Pulse Resp B/P (MAP) Pulse Ox O2 Delivery O2 Flow Rate FiO2 05/22/21 11:00 97.8 68 16 159/72 (101) 96 Room Air 97.8 I & O 05/21/21 05/21/21 05/22/21 15:00 23:00 07:00 Intake Total 0 ml 120 ml Output Total 200 ml 600 ml Balance -200 ml 0 ml -480 ml Physical Exam General: Alert, Oriented X3, Cooperative Heart: Regular rate, No murmurs Lungs: Clear Abdomen: Normal bowel sounds, No tenderness Extremities: No cyanosis, Normal pulses Skin: No breakdown Labs Labs: Laboratory Tests Test 05/21/21 16:26 05/21/21 21:17 05/22/21 07:39 05/22/21 12:05 Glucose (Fingerstick) 124 mg/dL (70-99) 111 mg/dL (70-99) 121 mg/dL (70-99) 113 mg/dL (70-99) Comment Review of Relevant I have reviewed the following items saúl (where applicable) has been applied. Justifications for Admission Other Justification JOHN WALSH MD May 22, 2021 15:07
[2021-05-22] MEDS: METOPROLOL TART IMMED RELEASE 25 MG TABLET. PO SCH ×2 (15:52→20:23)
[2021-05-22 19:06] VITALS: BP 151/75
[2021-05-22] MEDS: ATORVASTATIN CALCIUM 40 MG TABLET. PO SCH (20:23)
[2021-05-22 23:17] VITALS: BP 166/73
[2021-05-23 03:00] VITALS: BP 193/83
[2021-05-23] MEDS: hydrALAZINE 20 MG/ML VIAL. IVP PRN (03:29)
[2021-05-23 07:00] VITALS: BP 191/72
[2021-05-23] MEDS ORDERED: METO25TA4 PO (08:26)
[2021-05-23] MEDS ORDERED: ATOR40TA59 PO (08:26)
--- NOTE | 2021-05-23 08:28 | DISCH ---
DISCHARGE INSTRUCTIONS Condition on Discharge Condition on Discharge: Stable Activity After Discharge Activity Instructions for Disc: Activity as tolerated Lifting Instructions after Dis: Do not lift >10 pounds Exercise Instruction after Dis: Walk 15 min, 3 x per day Driving Instructions after Dis: Do not drive today Contacting the DR. after DC Call your doctor for: If your condition worsens (Please see your PCP JACKY) Follow-Up Follow up with: PCP within 2 weeks of discharge Follow Up With: Cardiology as needed or as scheduled Treatment/Equipment after DC Comment: pacemaker JOHN WALSH MD May 23, 2021 08:28
--- NOTE | 2021-05-23 08:43 | SNU/HH DC ---
DISCHARGE ORDERS DISCHARGE INFORMATION: DISCHARGE DATE: May 23, 2021 CONDITION ON DISCHARGE: Stable CODE STATUS: Code Status: Full LONGTERM: SNF STAY <30 DAYS: Yes POST DISCHARGE ORDERS: ACTIVITY ORDERS: Activity as tolerated CHECKS AFTER DISCHARGE: COMMENTS: pacemaker FOLLOW-UP: PHYSICIAN FOLLOW-UP: PCP within 2 weeks of discharge ADDITIONAL FOLLOW-UP: Cardiology as needed or as scheduled TREATMENT/EQUIPMENT ORDERS: Physical Therapy For: Evalulation/Treatment Occupational Therapy For: Evaluation/Treatment DISCHARGE MEDICATIONS: Home Meds Active Scripts Metoprolol Tartrate (METOPROLOL TARTRATE) 25 Mg Tablet, 25 MG PO BID for heart rate for 30 Days, #60 TAB Prov:JOHN WALSH MD 05/23/21 Atorvastatin Calcium (ATORVASTATIN CALCIUM) 40 Mg Tablet, 80 MG PO QHS for cholesterol for 30 Days, #60 TAB Prov:JOHN WALSH MD 05/23/21 Reported Medications Aspirin (ASPIRIN) 81 Mg Tab.chew, 81 MG PO DAILY for , TAB.CHEW 05/17/21 Saw [place] Fruit (SAW [place]METTO) 450 Mg Capsule, 450 MG PO DAILY for , CAP 05/17/21 Omeprazole (OMEPRAZOLE) 40 Mg Capsule.dr, 40 MG PO DAILY for , CAP 05/17/21 Lisinopril (LISINOPRIL) 20 Mg Tablet, 20 MG PO DAILY for FOR HYPERTENSION, #30 TAB 0 Refills 05/17/21 Amlodipine Besylate (AMLODIPINE BESYLATE) 10 Mg Tablet, 10 MG PO DAILY for , TAB 05/17/21 Discontinued Reported Medications Simvastatin (SIMVASTATIN) 20 Mg Tablet, 20 MG PO HS for FOR CHOLESTEROL, #30 TAB 0 Refills 05/17/21 JOHN WALSH MD May 23, 2021 08:43
[2021-05-23] MEDS: ASPIRIN ENTERIC COATED 325 MG TABLET.DR. PO SCH (10:20)
[2021-05-23] MEDS: LISINOPRIL 20 MG TABLET PO SCH (10:21)
[2021-05-23] MEDS: METOPROLOL TART IMMED RELEASE 25 MG TABLET. PO SCH (10:21)
[2021-05-23 11:00] VITALS: BP 143/63
--- NOTE | 2021-05-23 11:56 | NUR ---
SS following up with discharge planning. SS reviewed pt chart and discussed with pt RN. Pt is currently on room air. COVID19 negative. PT/OT recommended acute rehabilitation. Pt accepted at [facility], ; fax [phone]. Bed available. Discharge orders received and phoned and faxed to [facility]. Pt will discharge today and go to [facility] at 1300. [facility] to provide transportation. Pt, pt's RN, and pt's family notified.
--- NOTE | 2021-05-23 13:18 | PDOC ---
PROGRESS NOTES Date of Service: DATE: 05/23/21 TIME: 13:16 Subjective Subjective No new complaints. Objective Objective Vital Signs Date Time Temp Pulse Resp B/P (MAP) Pulse Ox O2 Delivery O2 Flow Rate FiO2 05/23/21 11:00 97.5 77 16 143/63 (89) 95 Room Air 97.5 Intake and Output 05/23/21 07:00 Intake Total 680 ml Output Total 525 ml Balance 155 ml Intake Oral 680 ml Output Urine Total 525 ml Physical Exam Abdomen: Normal bowel sounds, No tenderness Heart: Regular rate, No murmurs Extremities: No cyanosis, Normal pulses General: Alert, Oriented X3, Cooperative HEENT: Atraumatic Lungs: Clear to auscultation Neuro: Normal speech, Sensation intact Psych/Mental Status: Mental status NL, Mood NL Skin: No breakdown Assessment Assessment 1. 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 Neurology following. 2. Symptomatic bradycardia/SSS; EF and WM nml, s/p permanent pacemaker implantation. Telemetry showed paced rhythm. 3. Accelerated HTN: Blood pressure better controlled. Continue current medical regimen. 4. HLP: Continue statins 5. Subclinical hypothyroidism 6. S/P PPM: medtronic, repeat interrogation revealed nml function. AV pacing DC later today to [facility] rehab. Follow-up with our office as scheduled. Comment Review of Relevant I have reviewed the following items saúl (where applicable) has been applied. Labs Laboratory Tests Test 05/22/21 21:13 Glucose (Fingerstick) 110 mg/dL (70-99) Vitals/I & O Vital Sign - Last 24 Hours 05/22/21 05/22/21 05/22/21 05/22/21 15:00 15:52 19:06 19:40 Temp 98.1 97.5 98.1 97.5 Pulse 60 68 73 Resp 18 18 B/P (MAP) 156/64 (94) 159/72 151/75 (100) Pulse Ox 95 96 O2 Delivery Room Air Room Air Room Air 05/22/21 05/22/21 05/23/21 05/23/21 20:23 23:17 03:00 03:29 Temp 98.0 98.1 98.0 98.1 Pulse 73 63 67 67 Resp 18 16 B/P (MAP) 151/75 166/73 (104) 193/83 (119) 198/83 Pulse Ox 95 98 O2 Delivery Room Air Room Air 05/23/21 05/23/21 05/23/21 05/23/21 07:00 08:00 10:21 10:21 Temp 97.8 97.8 Pulse 66 66 66 Resp 16 B/P (MAP) 191/72 (111) 191/ 191/72 Pulse Ox 95 O2 Delivery Room Air Room Air 05/23/21 05/23/21 10:21 11:00 Temp 97.5 97.5 Pulse 66 77 Resp 16 B/P (MAP) 191 143/63 (89) Pulse Ox 95 O2 Delivery Room Air Intake and Output 05/22/21 05/22/21 05/23/21 15:00 23:00 07:00 Intake Total 380 ml 300 ml Output Total 175 ml 350 ml Balance 380 ml -175 ml -50 ml LOLA REYNOSO MD May 23, 2021 13:18
--- NOTE | 2021-05-23 13:42 | NUR ---
DISCHARGE REPORT ATTEMPT X 2 TO CALL REPORT TO [facility]. WAS TOLD REPORT WOULD GO TO GEOFFREY-CHARGE NURSE AT [facility]. BRIANDA ATTEMPT TO CALL WAS MET WITH AN ABILITY TO GIVE REPORT, SHE WAS NOT AVAILABLE. MESSAGE LEFT TO CALL.
--- NOTE | 2021-05-23 14:15 | NUR ---
Discharge Note: [facility] [place] Discharge instructions and discharge home medications reviewed with Eldon and a copy given. All questions have been answered and understanding verbalized. The following instructions and handouts were given: stroke prevention, HTN, high cholestrol, pacemaker insertion information, follow ups, and medications changes. NIH at DC was 2; pt transferred to wheelchair and taken per transportation in stable condition. Left arm in sling.
--- NOTE | 2021-05-23 15:56 | PDOC ---
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 Right leg strengthening Atherosclerosis involving the supraclinoid internal carotid arteries, resulting in 50-69 percent stenosis on the right and less than 50 percent stenosis on the left. No additional stenosis or occlusion Complete heart block, status-post pacemaker on 05/17 Hypertension, hyperlipidemia, diabetes Plan Agree with discharge today to [facility] re[facility] aspirin Statin Rehabilitation modalities, needs inpatient Tighten blood pressure control, watch diabetes and hyperlipidemia Discussed with son Follow-up with neurology as needed Subjective No complaints, ready to go to rehab Objective Vital Signs Date Time Temp Pulse Resp B/P (MAP) Pulse Ox O2 Delivery O2 Flow Rate FiO2 05/23/21 11:00 97.5 77 16 143/63 (89) 95 Room Air 97.5 Intake and Output 05/23/21 07:00 Intake Total 680 ml Output Total 525 ml Balance 155 ml Intake Oral 680 ml Output Urine Total 525 ml PHYSICAL EXAM Alert. Oriented to time, place and person. PERRL. EOMI. CN: no focal findings. Muscle tone: normal. Muscle strength: 4/5 right arm, 2-3/5 right leg DTR: 2+ Plantar reflex: Flexor Gait: not examined in bed. Sensory exam: no abnormal findings. No cerebellar signs elicited. Review of Relevant I have reviewed the following items saúl (where applicable) has been applied. Labs Laboratory Tests Test 05/21/21 16:26 05/21/21 21:17 05/22/21 07:39 05/22/21 12:05 Glucose (Fingerstick) 124 mg/dL (70-99) 111 mg/dL (70-99) 121 mg/dL (70-99) 113 mg/dL (70-99) Test 05/22/21 21:13 Glucose (Fingerstick) 110 mg/dL (70-99) Laboratory Tests Test 05/22/21 21:13 Glucose (Fingerstick) 110 mg/dL (70-99) Medications Current Medications Hydralazine HCl (Apresoline Inj) 10 mg PRN Q4HRS PRN IVP ELEVATED BP, SEE COMMENTS Last administered on 05/23/21at 03:29; Start 05/17/21 at 10:45; Stop 05/23/21 at 13:57; Status DC Lidocaine/ Epinephrine (LIDOCAINE 2%-EPI 1:100,000 multi-dose) 20 ml STK-MED ONCE .ROUTE ; Start 05/17/21 at 10:54; Stop 05/17/21 at 10:54; Status DC Atorvastatin Calcium (Lipitor) 80 mg QHS PO Last administered on 05/22/21at 20:23; Start 05/17/21 at 21:00; Stop 05/23/21 at 13:57; Status DC Acetaminophen (Tylenol) 650 mg PRN Q6HRS PRN PO MILD PAIN / TEMP > 100.3'F Last administered on 05/21/21at 09:20; Start 05/17/21 at 11:15; Stop 05/23/21 at 13:57; Status DC Aspirin (Ecotrin) 325 mg DAILYWBKFT PO Last administered on 05/23/21at 10:20; Start 05/18/21 at 08:00; Stop 05/23/21 at 13:57; Status DC Aspirin (Aspirin Rectal Supp) 300 mg PRN DAILY PRN KS IF UNABLE TO TAKE PO; Start 05/17/21 at 11:15; Stop 05/23/21 at 13:57; Status DC Cefazolin Sodium/ Dextrose 50 ml @ 100 mls/hr 1X ONCE IV Last administered on 05/17/21at 12:30; Start 05/17/21 at 13:00; Stop 05/17/21 at 13:29; Status DC Cefazolin Sodium 1 gm/Sodium Chloride 100 ml @ 600 mls/hr 1X ONCE IRR Last administered on 05/17/21at 13:15; Start 05/17/21 at 12:15; Stop 05/17/21 at 12:24; Status DC Midazolam HCl (Versed) 2 mg 1X ONCE IV Last administered on 05/17/21at 12:44; Start 05/17/21 at 12:15; Stop 05/17/21 at 12:29; Status DC Fentanyl Citrate (Fentanyl 2ml Vial) 100 mcg 1X ONCE IV Last administered on 05/17/21at 12:44; Start 05/17/21 at 12:15; Stop 05/17/21 at 12:29; Status DC Lidocaine/ Epinephrine (LIDOCAINE 2%-EPI 1:100,000 multi-dose) 20 ml 1X ONCE IJ Last administered on 05/17/21at 12:44; Start 05/17/21 at 12:15; Stop 05/17/21 at 12:29; Status DC Iodixanol (Visipaque 320) 100 ml STK-MED ONCE .ROUTE ; Start 05/17/21 at 12:51; Stop 05/17/21 at 12:52; Status DC Iodixanol (Visipaque 320) 100 ml 1X ONCE IART Last administered on 05/17/21at 13:39; Start 05/17/21 at 13:45; Stop 05/17/21 at 13:46; Status DC Info (CONTRAST GIVEN -- Rx MONITORING) 1 each PRN DAILY PRN MC SEE COMMENTS; Start 05/17/21 at 13:45; Stop 05/19/21 at 13:44; Status DC Hydralazine HCl (Apresoline Inj) 20 mg STK-MED ONCE .ROUTE ; Start 05/17/21 at 13:53; Stop 05/17/21 at 13:54; Status DC Cefazolin Sodium/ Dextrose 50 ml @ 100 mls/hr 1X ONCE IV Last administered on 05/17/21at 18:25; Start 05/17/21 at 18:30; Stop 05/17/21 at 18:59; Status DC Amlodipine Besylate (Norvasc) 10 mg DAILY PO Last administered on 05/23/21at 10:21; Start 05/18/21 at 09:00; Stop 05/23/21 at 13:57; Status DC Lisinopril (Prinivil) 20 mg DAILY PO Last administered on 05/18/21at 07:45; Start 05/18/21 at 09:00; Stop 05/18/21 at 21:52; Status DC Amlodipine Besylate (Norvasc) 10 mg 1X ONCE PO Last administered on 05/17/21at 22:39; Start 05/17/21 at 22:30; Stop 05/17/21 at 22:31; Status DC Lisinopril (Prinivil) 20 mg 1X ONCE PO Last administered on 05/17/21at 22:40; Start 05/17/21 at 22:30; Stop 05/17/21 at 22:31; Status DC Lisinopril (Prinivil) 40 mg DAILY PO Last administered on 05/23/21at 10:21; Start 05/19/21 at 09:00; Stop 05/23/21 at 13:57; Status DC Hydrochlorothiazide (Microzide) 12.5 mg 1X ONCE PO Last administered on 05/19/21at 13:41; Start 05/19/21 at 13:15; Stop 05/19/21 at 13:16; Status DC Metoprolol Tartrate (Lopressor) 25 mg BID PO Last administered on 05/23/21at 10:21; Start 05/22/21 at 13:00; Stop 05/23/21 at 13:57; Status DC Active Scripts Active Metoprolol Tartrate 25 Mg Tablet 25 Mg PO BID 30 Days Atorvastatin Calcium 40 Mg Tablet 80 Mg PO QHS 30 Days Reported Aspirin 81 Mg Tab.chew 81 Mg PO DAILY [place] (Saw [place] Fruit) 450 Mg Capsule 450 Mg PO DAILY Omeprazole 40 Mg Capsule.dr 40 Mg PO DAILY Lisinopril 20 Mg Tablet 20 Mg PO DAILY Amlodipine Besylate 10 Mg Tablet 10 Mg PO DAILY Vitals/I & O Vital Sign - Last 24 Hours 05/22/21 05/22/21 05/22/21 05/22/21 19:06 19:40 20:23 23:17 Temp 97.5 98.0 97.5 98.0 Pulse 73 73 63 Resp 18 18 B/P (MAP) 151/75 (100) 151/75 166/73 (104) Pulse Ox 96 95 O2 Delivery Room Air Room Air Room Air 05/23/21 05/23/21 05/23/21 05/23/21 03:00 03:29 07:00 08:00 Temp 98.1 97.8 98.1 97.8 Pulse 67 67 66 Resp 16 16 B/P (MAP) 193/83 (119) 198/83 191/72 (111) Pulse Ox 98 95 O2 Delivery Room Air Room Air Room Air 05/23/21 05/23/21 05/23/21 05/23/21 10:21 10:21 10:21 11:00 Temp 97.5 97.5 Pulse 66 66 66 77 Resp 16 B/P (MAP) 191/72 191/72 191/72 143/63 (89) Pulse Ox 95 O2 Delivery Room Air Intake and Output 05/22/21 05/22/21 05/23/21 15:00 23:00 07:00 Intake Total 380 ml 300 ml Output Total 175 ml 350 ml Balance 380 ml -175 ml -50 ml Justicifation of Admission Dx: Justifications for Admission: Justification of Admission Dx: Yes JOANN JONES MD May 23, 2021 15:56
--- NOTE | 2021-06-03 16:18 | PDOC3 ---
[facility]-Discharge Summary Date of Admission: Date of Admission: May 17, 2021 Date of Discharge: Date of Discharge: May 23, 2021 Discharge Diagnosis: Discharge Diagnosis: 1. 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 3. complete Heart block requiring a permanent pacemaker. 4. Hyperlipidemia and htn 5. Diabetes 2 - good contorl 6. carotid artery stenosis, mild Consults: Consults: Cardiology Assessment 1. 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 Neurology following. 2. Symptomatic bradycardia/SSS; EF and WM nml, s/p permanent pacemaker implant ation. Telemetry showed paced rhythm. 3. Accelerated HTN: Blood pressure better controlled. Continue current medical regimen. 4. HLP: Continue statins 5. Subclinical hypothyroidism 6. S/P PPM: medtronic, repeat interrogation revealed nml function. AV pacing DC later today to [facility] rehab. Follow-up with our office as scheduled. Neurology Plan Agree with discharge today to [facility] rehab aspirin Statin Rehabilitation modalities, needs inpatient Tighten blood pressure control, watch diabetes and hyperlipidemia Discussed with son Follow-up with neurology as needed Hospital Course: Hospital Course: 81-year-old right-handed male transferred her rom [facility] on 05.17 for generalized weakness. New problem with right leg and could not walk. Taken here for heart blockj pacer placed, MRI done, treated for acute stroke, modalities done 05/22/21 No acute events overnight. Patient seen and examined bedside. No concerns with nursing. Pending bed availability at [facility] rehab. Patient's chart, labs, images were reviewed and discussed with RN By day of discharge, pt was clinically stable and ready for discharge. Rest of hospital course was uneventful Disposition: Disposition/Orders: D/C to Home Activity: Activity: Resume previous activity Diet: Diet: Cardiac Medications: Home Meds Active Scripts Metoprolol Tartrate (METOPROLOL TARTRATE) 25 Mg Tablet, 25 MG PO BID for heart rate for 30 Days, #60 TAB Prov:JOHN WALSH MD 05/23/21 Atorvastatin Calcium (ATORVASTATIN CALCIUM) 40 Mg Tablet, 80 MG PO QHS for cholesterol for 30 Days, #60 TAB Prov:JOHN WALSH MD 05/23/21 Reported Medications Aspirin (ASPIRIN) 81 Mg Tab.chew, 81 MG PO DAILY for , TAB.CHEW 05/17/21 Saw [place] Fruit (SAW [place]MET[place]) 450 Mg Capsule, 450 MG PO DAILY for , CAP 05/17/21 Omeprazole (OMEPRAZOLE) 40 Mg Capsule.dr, 40 MG PO DAILY for , CAP 05/17/21 Lisinopril (LISINOPRIL) 20 Mg Tablet, 20 MG PO DAILY for FOR HYPERTENSION, #30 TAB 0 Refills 05/17/21 Amlodipine Besylate (AMLODIPINE BESYLATE) 10 Mg Tablet, 10 MG PO DAILY for , TAB 05/17/21 Scheduled Amlodipine Besylate (Amlodipine Besylate), 10 MG PO DAILY, (Reported) Aspirin (Aspirin), 81 MG PO DAILY, (Reported) Atorvastatin Calcium (Atorvastatin Calcium), 80 MG PO QHS Lisinopril (Lisinopril), 20 MG PO DAILY, (Reported) Metoprolol Tartrate (Metoprolol Tartrate), 25 MG PO BID Omeprazole (Omeprazole), 40 MG PO DAILY, (Reported) Saw [place] Fruit (S[place]), 450 MG PO DAILY, (Reported) Total Time: Total Time: Total time spent was 32 minutes in preparing scripts, discharge planning with SW and RN, and preparing this discharge summary. Patient seen and examined on day of discharge. Justicifation of Admission Dx: Justifications for Admission: Justification of Admission Dx: Yes JOHN WALSH MD Jun 03, 2021 16:18
== END 2021-05-23 13:55 | DRG 242 ==
LOC: OPSVCIP 10:06 → 6 SOUTH 16:33
PROVIDERS: ADMIT Internal Medicine; ATTEND Internal Medicine
PROC: 0JH606Z Insertion of Pacemaker, Dual Chamber into Chest Subcutaneous Tissue and Fascia, Open Approach (ICD-10-PCS; principal; 2021-05-17)
PROC: 02HK3JZ Insertion of Pacemaker Lead into Right Ventricle, Percutaneous Approach (ICD-10-PCS; 2021-05-17)
PROC: 02H63JZ Insertion of Pacemaker Lead into Right Atrium, Percutaneous Approach (ICD-10-PCS; 2021-05-17)
PROC: B517YZZ Fluoroscopy of Left Subclavian Vein using Other Contrast (ICD-10-PCS; 2021-05-17)
DX: I44.2 Atrioventricular block, complete (principal); I63.9 Cerebral infarction, unspecified; G81.91 Hemiplegia, unspecified affecting right dominant side; E03.8 Other specified hypothyroidism; E11.22 Type 2 diabetes mellitus with diabetic chronic kidney disease; E11.65 Type 2 diabetes mellitus with hyperglycemia; E78.5 Hyperlipidemia, unspecified; I12.9 Hypertensive chronic kidney disease with stage 1 through stage 4 chronic kidney disease, or unspecified chronic kidney disease; I49.5 Sick sinus syndrome; I65.29 Occlusion and stenosis of unspecified carotid artery; N18.30 Chronic kidney disease, stage 3 unspecified; Z96.642 Presence of left artificial hip joint; K21.9 Gastro-esophageal reflux disease without esophagitis; Z95.0 Presence of cardiac pacemaker
CPT/HCPCS: 33208; 36415; 70544; 70547; 70551; 71045; 80048; 80053; 80061; 82962; 83036; 85025; 93306; 99152; 99153; C1785; C1894; J0360; J0690; J2250; J3010; J3490; Q9967; 92610-GN; 97110-GP; 97530-GO; 97530-GP; 97535-GO; G0378